=== PATIENT | male | born 1940 | race Caucasian/White ===

== ENCOUNTER 2022-04-13 14:20 | Outpatient (CLI) | payer MEDICARE, SELFPAY ==
--- NOTE | ~2022-04-13 | XR_ITS ---
EXAMINATION: XR chest 2V DATE: 04/13/2022 14:49 INDICATION: Chronic cough. TECHNIQUE: Frontal and lateral views of the chest were obtained. COMPARISON: Chest 2 views 01/01/18 FINDINGS: There is eventration of anterior hemidiaphragm. There is a diffuse interstitial pattern in the lungs with a peripheral predominance, consistent with chronic interstitial lung disease. No pleur al effusion or pneumothorax. The heart size is normal. IMPRESSION: 1. Worsened chronic interstitial lung disease. Reviewed, dictated and finalized at location A.
[2022-04-13 14:36] LABS: Basophils Absolute Auto 0.06 K/mm3 (0.00-0.10); Basophils Percent Auto 0.8 % (0.0-1.0); Eosinophils Absolute Auto 0.28 K/mm3 (0.02-0.50); Eosinophils Percent Auto 3.7 % (1.0-6.0); Hematocrit 37.4 % (37.0-46.0); Hemoglobin 12.4 g/dL (12.4-15.3); Immature Granulocyte Absolute 0.05 K/mm3 (0.00-0.00); Immature Granulocyte Percent A 0.7 % (0.0-0.0); Lymphocytes Absolute Auto 2.22 K/mm3 (1.10-4.50); Lymphocytes Percent Auto 29.4 % (18.0-42.0); Mean Corpuscular HGB Conc 33.2 g/dL (32.0-36.0); Mean Corpuscular Hemoglobin 31.1 pg (27.0-31.0); Mean Corpuscular Volume 93.7 fL (78.0-102.0); Mean Platelet Volume 9.7 fl (8.7-11.0); Monocytes Absolute Auto 0.68 K/mm3 (0.10-0.90); Neutrophils Absolute Auto 4.3 K/mm3 (1.7-7.2); Neutrophils Percent Auto 56.4 % (50.0-70.0); Platelet Count Result 180 K/mm3 (150-420); Red Blood Count 3.99 M/mm3 (4.70-6.10); Red Cell Distribution Width 14.6 % (11.6-14.4); White Blood Count 7.6 K/mm3 (4.8-10.8)
[2022-04-13 14:44] LABS: Appearance Urine Clear (Clear); Bilirubin Urine Negative (Negative); Color Urine Yellow (Yellow); Glucose Urine UA Negative (Negative); Ketones Urine Negative (Negative); Leukocyte Esterase Ur Negative (Negative); Nitrate Urine Negative (Negative); Protein Urine Negative (Negative); Specific Grav Ur 1.025 (1.010-1.020); Urobilinogen Urine 0.2 mg/dL (0.2-1.0)
[2022-04-13 14:45] LABS: Add Urine Microscopic? NO; Blood Urine Negative (Negative)
[2022-04-13 14:50] LABS: Hemoglobin A1C 7.8 % (<5.7)
--- NOTE | 2022-04-13 15:04 | ECG_ITS ---
Measurements Intervals [place] Rate: 73 P: 19 KS: 169 QRS: 50 QRSD: 150 T: 60 QT: 432 QTc: 479 Interpretive Statements SINUS RHYTHM RIGHT BUNDLE BRANCH BLOCK ABNORMAL ECG NO PREVIOUS ECG AVAILABLE FOR COMPARISON Electronically Signed On 04-13-2022 21:34:13 CDT by Oneil Hagen D.O.
[2022-04-13 15:09] LABS: Alanine Aminotransferase 18 U/L (16-63); Albumin Level 3.7 g/dL (3.4-5.0); Alkaline Phosphatase 82 U/L (46-116); Anion Gap 8 mmol/L (8-16); Aspartate Amino Transferase 13 U/L (15-37); Bilirubin,Total 1.1 mg/dL (0.00-1.00); Blood Urea Nitrogen 20 mg/dL (7-18); Calcium 8.9 mg/dL (8.5-10.1); Carbon Dioxide 29 mmol/L (21-32); Chloride 100 mmol/L (98-108); Cholesterol 120 mg/dL (0-200); Estimated Glomerular Filt Rate > 60; Glucose 195 mg/dL (70-99); HDL Direct 41 mg/dL (40-60); LDL Cholesterol Calculated 54 mg/dL (<130); NT Pro B Type Natriuretic Pept 273 pg/mL (0-450); Osmolality Calculated 291 mOsm/kg (285-295); Potassium 4.9 mmol/L (3.5-5.1); Sodium 137 mmol/L (136-145); Thyroid Stimulating Hormone 2.16 uIU/mL (0.36-3.74); Total Protein 7.1 g/dL (6.4-8.2); Triglycerides 124 mg/dL (0-150)
[2022-04-16 09:55] LABS: CRP < 0.2 mg/dL (0.0-0.9)
== END 2022-04-13 14:21 | disposition home or self-care (01) ==
LOC: CHSLAB 14:24
PROVIDERS: PCP Internal Medicine; Visit Provider Internal Medicine
DX: R05.3 Chronic cough (principal); I49.9 Cardiac arrhythmia, unspecified; R06.00 Dyspnea, unspecified; E11.9 Type 2 diabetes mellitus without complications
CPT/HCPCS: 36415; 71046; 80053; 80061; 81003; 83036; 83880; 84443; 85025; 86038; 86140; 93005

== ENCOUNTER 2022-04-24 12:30 | Outpatient (CLI) | payer MEDICARE, SELFPAY ==
--- NOTE | ~2022-04-24 | CT_ITS ---
EXAMINATION:CT diagnostic chest wo con DATE: 04/24/2022 12:51 INDICATION: Interstitial lung disease. Cough. TECHNIQUE: Computed tomography (CT) of the chest was performed without intravenous contrast. Automate d exposure control and iterative reconstruction technique were employed. The dose-length product (DLP ) was 309.38 mGy-cm. COMPARISON: Chest 2 views 04/13/2022 FINDINGS: There is widespread septal thickening in the lungs with a peripheral predominance. There is peripheral honeycombing in all lobes. There is mild bronchiectasis in the inferior lungs. There are nodules in the lungs measuring up to 5 mm in left upper lobe, likely benign. Calcified pulmonary nodu les and calcified hilar lymph nodes are consistent with old granulomatous disease. No pleural effusio n. The heart size is normal. There are coronary artery calcifications. There are calcifications of ao rtic valve. No pericardial effusion. There is mild mediastinal lymphadenopathy, likely reactive. The central pulmonary arteries are enlarged, consistent with pulmonary arterial hypertension. IMPRESSION: 1. Severe chronic interstitial lung disease in a pattern of usual interstitial pneumonia (UIP). 2. Mild mediastinal lymphadenopathy, likely reactive. Reviewed, dictated and finalized at location A.
== END 2022-04-24 12:31 | disposition home or self-care (01) ==
PROVIDERS: PCP Internal Medicine; Visit Provider Internal Medicine
DX: J84.9 Interstitial pulmonary disease, unspecified (principal)
CPT/HCPCS: 71250

== ENCOUNTER 2022-05-11 08:38 | Outpatient (CLI) | payer MEDICARE, SELFPAY | END 2022-05-11 08:39 | disposition home or self-care (01) | LOC: CHSCARD 08:41 | PROVIDERS: PCP Internal Medicine; Visit Provider Internal Medicine | DX: J84.9 Interstitial pulmonary disease, unspecified (principal) | CPT/HCPCS: 94060; 94726; 94729 ==

== ENCOUNTER 2022-06-07 11:10 | Outpatient (CLI) | payer MEDICARE, SELFPAY ==
[2022-06-07 12:10] LABS: CRP < 0.5 mg/dL (<1.0); Creatine Kinase 79 U/L (55-170); Rheumatoid Factor < 8.6 IU/ML (<12)
[2022-06-11 12:34] LABS: Anti Cyclic Citrullinated Pept <16 Units (<20)
== END 2022-06-07 11:11 | disposition home or self-care (01) ==
LOC: ANHLAB 11:11
PROVIDERS: PCP Internal Medicine; Visit Provider Internal Medicine Pulmonary Disease
DX: J84.9 Interstitial pulmonary disease, unspecified (principal)
CPT/HCPCS: 36415; 82550; 86140; 86200; 86430

== ENCOUNTER 2022-06-11 10:50 | Outpatient (CLI) | payer MEDICARE, SELFPAY ==
[2022-06-11 11:00] VITALS: PULSE 67; O2SAT 98
[2022-06-11 11:07] VITALS: PULSE 86; O2SAT 93
--- NOTE | 2022-06-11 11:14 | HOMEO2EVAL ---
[place] was [place] [facility]: Home Oxygen (O2) Evaluation Start: 06/11/22 11:11 Freq: Status: Active Protocol: RPE Activity Type Activity Date Activity User E-sign Co-sign Detail Recorded Client Recorded Date Recorded By Document 06/11/22 11:00 [email or web address] [email or web address] 06/11/22 11:14 SJB Document 06/11/22 11:07 SJB [email or web address] 06/11/22 11:14 SJB 06/11/22 06/11/22 11:00 11:07 Home O2 Evaluation [Oxygen] -Test Phase Resting Exercise -Oxygen Delivery Room Air Room Air [Pulse Oximetry] -Pulse Oximetry (90-100 %) 98 93 [Pulse Rate] -Pulse Rate (60-100 beats/min) 67 86 [Evaluation] -Activity Tolerance Excellent -Rate of Perceived Exertion (PE) 11 Fairly light Query Text:Click the Protocol Button to View the RPE Scale [Exercise] -Ambulation Distance (feet) 1,400 -Ambulation Distance (meters) 426.69 [Comments] -Home Oxygen Evaluation Comments WILL BEGIN WALK PT WALKED ON ROOM AIR. APPROX 1450 FT ON ROOM AIR. SP02 STAYED AT 93% AND ABOVE, WITH HR UP TO 86 BPM. PT EDUCATED ON PLB . TOLERATED VERY WELL. [Charges] -Treatment Charges O2 Evaluation - Outpatient
== END 2022-06-11 10:51 | disposition home or self-care (01) ==
LOC: CHSCARD 10:53
PROVIDERS: PCP Internal Medicine; Visit Provider Internal Medicine Pulmonary Disease
DX: Z87.891 Personal history of nicotine dependence (principal)
CPT/HCPCS: 94618

== ENCOUNTER 2022-12-07 12:32 | Outpatient (CLI) | payer MEDICARE, SELFPAY ==
--- NOTE | ~2022-12-07 | CT_ITS ---
EXAMINATION:CT chest high resolution wo ny DATE: 12/07/2022 13:09 INDICATION: Interstitial pulmonary disease. Cough. TECHNIQUE: Computed tomography (CT) of the chest was performed without intravenous contrast. Automate d exposure control and iterative reconstruction technique were employed. The dose-length product (DLP ) was 315.67 mGy-cm. COMPARISON: Chest CT 04/24/2022 FINDINGS: The lung volumes are small. There is widespread septal thickening in the lungs with a perip heral predominance associated with groundglass opacities. There is peripheral honeycombing in all lob es. There is mild bronchiectasis in the lungs. Calcified pulmonary nodules and calcified right hilar lymph nodes are consistent with old granulomatous disease. No pleural effusion. The heart size is nor mal. There are coronary artery calcifications. No pericardial effusion. There is mild noncalcified me diastinal lymphadenopathy, likely reactive. There are bridging endplate osteophytes at multiple level s in the spine, consistent with diffuse idiopathic skeletal hyperostosis (DISH). IMPRESSION: 1. Stable severe chronic interstitial lung disease in a pattern of usual interstitial pneumonia (UIP) . 2. Stable mild mediastinal lymphadenopathy, likely reactive. Reviewed, dictated and finalized at location E. IMPRESSION: 1. Stable severe chronic interstitial lung disease in a pattern of usual inters titial pneumonia (UIP). 2. Stable mild mediastinal lymphadenopathy, likely reactive.
== END 2022-12-07 12:33 | disposition home or self-care (01) ==
LOC: CHSIMG 12:33
PROVIDERS: PCP Internal Medicine; Visit Provider Internal Medicine Pulmonary Disease
DX: J84.9 Interstitial pulmonary disease, unspecified (principal); Z87.891 Personal history of nicotine dependence; R59.0 Localized enlarged lymph nodes
CPT/HCPCS: 71250

== ENCOUNTER 2022-12-28 13:03 | Outpatient (CLI) | payer MEDICARE, SELFPAY ==
[2022-12-28 13:16] VITALS: PULSE 75; O2SAT 93
[2022-12-28 13:17] VITALS: PULSE 85; O2SAT 93
[2022-12-28 13:20] VITALS: PULSE 84; O2SAT 91
[2022-12-28 13:22] VITALS: PULSE 95; O2SAT 90
[2022-12-28 13:24] VITALS: PULSE 74; O2SAT 93
--- NOTE | 2022-12-28 14:32 | HOMEO2EVAL ---
Evaluation was performed at [facility] Home Oxygen Evaluation RC: Home Oxygen (O2) Evaluation Start: 12/28/22 14:30 Freq: Status: Active Protocol: RPE Activity Type Activity Date Activity User E-sign Co-sign Detail Recorded Client Recorded Date Recorded By Document 12/28/22 13:16 KRM [id number] 12/28/22 14:32 KRM Document 12/28/22 13:17 KRM [id number] 12/28/22 14:32 KRM Document 12/28/22 13:20 KRM [id number] 12/28/22 14:32 KRM Document 12/28/22 13:22 KRM [id number] 12/28/22 14:32 KRM Document 12/28/22 13:24 KRM [id number] 12/28/22 14:32 KRM 12/28/22 12/28/22 12/28/22 13:16 13:17 13:20 Home O2 Evaluation [Oxygen] -Test Phase Resting Exercise Exercise -Oxygen Delivery Room Air Room Air Room Air [Pulse Oximetry] -Pulse Oximetry (90-100 %) 93 93 91 [Pulse Rate] -Pulse Rate (60-100 beats/min) 75 85 84 [Evaluation] -Activity Tolerance Good Good [Exercise] -Ambulation Distance (feet) -Ambulation Distance (meters) [Charges] -Treatment Charges 12/28/22 12/28/22 13:22 13:24 Home O2 Evaluation [Oxygen] -Test Phase Exercise Resting -Oxygen Delivery Room Air Room Air [Pulse Oximetry] -Pulse Oximetry (90-100 %) 90 93 [Pulse Rate] -Pulse Rate (60-100 beats/min) 95 74 [Evaluation] -Activity Tolerance Good Good [Exercise] -Ambulation Distance (feet) 1,020 -Ambulation Distance (meters) 310.88 [Charges] -Treatment Charges O2 Evaluation - Outpatient
--- NOTE | 2023-01-16 11:40 | P.PCNPFT_ITS ---
PFT Procedure Performed PFT Procedure Performed Spirometry with Pre/Post Bronchodilator Plethysmography (Lung Vol) Diffusing Cap (DLCO) Flow Vol Loop PFT Interpretation DOS: 12/28/2022 REQUESTING: Ronny Freeman MD REASON FOR TESTING: interstitial lung disease PULMONARY FUNCTION TESTS Results are reliable and reproducible. Spirometry: Pre-bronchodilator FEV1 is 3.12 L, 100% predicted, normal. Pre- bronchodilator FVC is 3.71 L, 91%, normal. FEV1 /FVC is 84%, normal. After bronchodilator, there is a 1% increase in the FEV1 and a 2% decrease in the FVC. These are not statistically significant. The FEV1/ FVC ratio is the same, 86%. Lung volumes: Total lung capacity 4.90 L, 72%, decreased, consistent with mild restriction. Residual volume 1.19 L, 41% decreased. RV/TLC is 24%, lower than normal. Airway resistance 2.46, 214% Diffusion: DLCO is 15.7, 74% predicted, low end of normal. DLCO/VA is 2.90, 87% predicted, normal. Flow volume loop: The flow volume loop suggests a restrictive impairment. IMPRESSION: This study shows normal spirometry without response to br onchodilator, a mild restrictive pattern and normal diffusion. Compared to a prior study the total lung capacity is smaller showing progression of restriction. There has been an absolute decrease of 720 meals in the total lung capacity. Diffusion has remained stable per absolute values. A prior PFT 05/11/2022 shows FEV1 3.56 L, 113%, normal. Pre bronchodilator FVC is 4.25 L, 104%, normal. The FEV1/FVC ratio is 84%. There was a 4% decrease in both the FEV1 and the FVC after bronchodilator. The total lung capacity was 5.62 L, 82%, low end of normal. Residual volume was 1.37, 48%, decreased, and the RV/TLC was 24%, decreased. Airway resistance was normal. Diffusion showed a DLCO of 14.1, 68% and DLCO/ VA 2.65, 80%. Marian Leiva MD
== END 2022-12-28 13:04 | disposition home or self-care (01) ==
LOC: CHSCARD 13:04
PROVIDERS: PCP Internal Medicine; Visit Provider Internal Medicine Pulmonary Disease
DX: J84.9 Interstitial pulmonary disease, unspecified (principal); Z87.891 Personal history of nicotine dependence
CPT/HCPCS: 94060; 94618; 94726; 94729

== ENCOUNTER 2023-01-30 12:37 | Outpatient (CLI) | payer MEDICARE, SELFPAY ==
[2023-01-30 12:54] LABS: Basophils Absolute Auto 0.04 K/mm3 (0.00-0.10); Basophils Percent Auto 0.5 % (0.0-1.0); Eosinophils Absolute Auto 0.25 K/mm3 (0.02-0.50); Eosinophils Percent Auto 3.4 % (1.0-6.0); Hematocrit 36.6 % (37.0-46.0); Hemoglobin 12.2 g/dL (12.4-15.3); Immature Granulocyte Absolute 0.04 K/mm3 (0.00-0.00); Immature Granulocyte Percent A 0.5 % (0.0-0.0); Lymphocytes Absolute Auto 1.81 K/mm3 (1.10-4.50); Lymphocytes Percent Auto 24.8 % (18.0-42.0); Mean Corpuscular HGB Conc 33.3 g/dL (32.0-36.0); Mean Corpuscular Hemoglobin 31.6 pg (27.0-31.0); Mean Corpuscular Volume 94.8 fL (78.0-102.0); Mean Platelet Volume 9.6 fl (8.7-11.0); Monocytes Absolute Auto 0.64 K/mm3 (0.10-0.90); Monocytes Percent Auto 8.8 % (2.0-11.0); Neutrophils Absolute Auto 4.5 K/mm3 (1.7-7.2); Platelet Count Result 143 K/mm3 (150-420); Red Blood Count 3.86 M/mm3 (4.70-6.10); Red Cell Distribution Width 13.7 % (11.6-14.4); White Blood Count 7.3 K/mm3 (4.8-10.8)
[2023-01-30 12:59] LABS: Appearance Urine Clear (Clear); Bilirubin Urine Negative (Negative); Blood Urine 1+ (Negative); Color Urine Light Yellow (Yellow); Glucose Urine UA Negative (Negative); Ketones Urine Negative (Negative); Leukocyte Esterase Ur Negative (Negative); Nitrate Urine Negative (Negative); Protein Urine Negative (Negative); Specific Grav Ur <= 1.005 (1.010-1.020); Urobilinogen Urine 0.2 mg/dL (0.2-1.0)
[2023-01-30 13:07] LABS: Hemoglobin A1C 7.3 % (<5.7)
[2023-01-30 13:13] LABS: Add Urine Microscopic? YES; Bacteria Urine Rare /hpf; RBC Urine 0-2 /hpf (0-2); WBC Urine None seen /hpf (0-3)
[2023-01-30 13:50] LABS: Alanine Aminotransferase 15 U/L (16-63); Albumin Level 3.5 g/dL (3.4-5.0); Alkaline Phosphatase 58 U/L (46-116); Anion Gap 8 mmol/L (8-16); Aspartate Amino Transferase 11 U/L (15-37); Bilirubin,Total 1.2 mg/dL (0.00-1.00); Blood Urea Nitrogen 13 mg/dL (7-18); Calcium 8.6 mg/dL (8.5-10.1); Carbon Dioxide 29 mmol/L (21-32); Chloride 95 mmol/L (98-108); Cholesterol 123 mg/dL (0-200); Estimated Glomerular Filt Rate > 60; Glucose 153 mg/dL (70-99); HDL Direct 43 mg/dL (40-60); LDL Cholesterol Calculated 67 mg/dL (<130); Osmolality Calculated 277 mOsm/kg (285-295); Potassium 4.7 mmol/L (3.5-5.1); Sodium 132 mmol/L (136-145); Thyroid Stimulating Hormone 2.06 uIU/mL (0.36-3.74); Total Protein 7.1 g/dL (6.4-8.2); Triglycerides 67 mg/dL (0-150); Uric Acid 4.5 mg/dL (3.5-7.2)
== END 2023-01-30 12:38 | disposition home or self-care (01) ==
PROVIDERS: PCP Internal Medicine; Visit Provider Internal Medicine
DX: E11.8 Type 2 diabetes mellitus with unspecified complications (principal); Z12.5 Encounter for screening for malignant neoplasm of prostate
CPT/HCPCS: 36415; 80053; 80061; 81001; 83036; 84443; 84550; 85025

== ENCOUNTER 2023-07-11 09:26 | Outpatient (CLI) | payer MEDICARE, SELFPAY ==
--- NOTE | ~2023-07-11 | CT_ITS ---
EXAMINATION: CT diagnostic chest wo con DATE: 07/11/2023 09:47 INDICATION: Interstitial pulmonary disease TECHNIQUE: Computed tomography (CT) of the chest was performed without intravenous contrast. The dose -length product (DLP) was 12/07/2022 mGy-cm. Automated exposure control and iterative reconstruction t echnique were employed. COMPARISON: 12/07/2022 FINDINGS: There are widespread subpleural reticular and groundglass opacities without significant shiloh nge. There is honeycombing in the lower lung zones. There are a few areas of superimposed groundglass opacities in the medial right upper lobe. Traction bronchiectasis is noted in the lower lobes. No pl eural effusion or pneumothorax. Calcified coronary artery atherosclerosis is noted. The heart size is normal. There is chronic mild mediastinal lymphadenopathy, likely reactive. There are bridging osteo phytes at multiple levels in the spine, consistent with diffuse idiopathic skeletal hyperostosis (DIS H). IMPRESSION: 1. Chronic interstitial lung disease in a pattern of usual interstitial pneumonia (UIP). 2. Superimposed airspace opacities in the medial right upper lobe may be infectious or inflammatory. 3. Chronic mild mediastinal lymphadenopathy, likely reactive. Reviewed, dictated and finalized at location L. R FOAM RUBBER IMPRESSION: 1. Chronic interstitial lung disease in a pattern of usual interstitial pneumon ia (UIP). 2. Superimposed airspace opacities in the medial right upper lobe may be infect ious or inflammatory. 3. Chronic mild mediastinal lymphadenopathy, likely reactive.
--- NOTE | 2023-07-11 17:10 | WPDSIXMINUTE ---
Six Minute Walk Procedure Procedure Performed Pulmonary Stress Test (6 min walk) Six Minute Walk Six Minute Walk: This is a 6 minute walk test. The test was performed and interpreted in accordance with the 2014 ERS/ATS task force guidelines. Findings: The patient's resting room air oxygen saturation measured by pulse oximetry was 94% and heart rate was 64 bpm. Patient ambulated for 335 meters and oxygen saturation remained 90 to 91%. Heart rate at the end of the study was 96 bpm. The patient did not qualify for supplemental oxygen at rest or with ambulation. There are no prior studies for comparison.
--- NOTE | 2023-07-11 17:13 | WPDPFTINT ---
PFT Procedure Performed PFT Procedure Performed Spirometry with Pre/Post Bronchodilator Plethysmography (Lung Vol) Diffusing Cap (DLCO) Flow Vol Loop PFT Interpretation This is a pulmonary function test with pre and post-bronchodilator spirometry, plethysmography and diffusing capacity. The test was performed and results interpreted in accordance with the 2019 and 2005 ATS/ERS Task Force guidelines respectively using the Global Lung Function Initiative-2012 reference equations. Patient demonstrated good effort and cooperation. Reproducibility criteria were met. The quality of the pre bronchodilator spirometry maneuver was Grade A and post bronchodilator spirometry maneuver was Grade A. Findings: Spirometry: The contour the inspiratory and expiratory flow tracing are normal. The pre bronchodilator FVC is 3.58 L, 87% predicted. The pre bronchodilator FEV1 is 2.92 L, 97% predicted. The pre bronchodilator FEV1: FVC ratio was 82%. The post bronchodilator FVC is 3.48 L, representing a 3% decrease. The post bronchodilator FEV1 is 3.01 L, representing a 3% increase. The post bronchodilator FEV1: FVC ratio is 86%. Plethysmography: The total lung capacity is 4.07 L, 54% predicted. The functional residual capacity is 1.78 L, 44% predicted. The residual volume is 0.37 L, 13% predicted. Diffusing capacity: The diffusing capacity unadjusted for hemoglobin and carboxyhemoglobin is 10.7, 44% predicted. The diffusing capacity adjusted for alveolar volume is 2.22, 64% predicted. Impression: There is a mild restrictive ventilatory abnormality with a normal FEV1. The spirometry is normal without evidence of an obstructive abnormality. There is no significant improvement after inhaling a single dose of albuterol. The diffusing capacity unadjusted for hemoglobin and carboxyhemoglobin is moderately decreased and remains mildly decreased when adjusted for alveolar volume. There are no prior studies for comparison
== END 2023-07-11 09:27 | disposition home or self-care (01) ==
PROVIDERS: PCP Internal Medicine; Visit Provider Internal Medicine Pulmonary Disease
DX: J84.9 Interstitial pulmonary disease, unspecified (principal); R91.8 Other nonspecific abnormal finding of lung field; R59.0 Localized enlarged lymph nodes
CPT/HCPCS: 71250; 94060; 94618; 94726; 94729

== ENCOUNTER 2023-12-10 10:12 | Outpatient (NON) | payer MEDICARE, SELFPAY ==
[2023-12-10 10:33] LABS: Hemoglobin A1C 6.7 % (<5.7)
[2023-12-10 10:35] LABS: Alanine Aminotransferase 19 U/L (16-63); Albumin Level 3.7 g/dL (3.4-5.0); Alkaline Phosphatase 74 U/L (46-116); Anion Gap 7 mmol/L (4-12); Aspartate Amino Transferase 16 U/L (15-37); Bilirubin,Total 1.3 mg/dL (0.00-1.00); Blood Urea Nitrogen 16 mg/dL (7-18); Calcium 8.6 mg/dL (8.5-10.1); Carbon Dioxide 32 mmol/L (21-32); Chloride 92 mmol/L (98-108); Estimated Glomerular Filt Rate > 60; Glucose 79 mg/dL (70-99); Osmolality Calculated 272 mOsm/kg (285-295); Potassium 4.4 mmol/L (3.5-5.1); Sodium 131 mmol/L (136-145); Total Protein 7.5 g/dL (6.4-8.2)
[2023-12-12 13:03] LABS: Osmolality, Urine 253 mOsm/kg (50-1200)
== END 2023-12-10 10:13 | disposition home or self-care (01) ==
LOC: CHSLAB 10:16
PROVIDERS: PCP Internal Medicine; Visit Provider Internal Medicine
DX: E87.1 Hypo-osmolality and hyponatremia (principal); E11.9 Type 2 diabetes mellitus without complications
CPT/HCPCS: 80053; 83036; 83935

== ENCOUNTER 2024-01-07 09:50 | Outpatient (CLI) | payer MEDICARE, SELFPAY ==
[2024-01-07 10:00] VITALS: PULSE 69; O2SAT 94
[2024-01-07 10:03] VITALS: PULSE 92; O2SAT 84
[2024-01-07 10:04] VITALS: O2SAT 86
[2024-01-07 10:05] VITALS: PULSE 92; O2SAT 92
[2024-01-07 10:15] VITALS: PULSE 72; O2SAT 94
--- NOTE | 2024-01-07 11:55 | HOMEO2EVAL ---
Evaluation was performed at [facility] Home Oxygen Evaluation RC: Home Oxygen (O2) Evaluation Start: 01/07/24 11:50 Freq: Status: Active Protocol: RPE Activity Type Activity Date Activity User E-sign Co-sign Detail Recorded Client Recorded Date Recorded By Document 01/07/24 10:00 JOEL [email or web address] 01/07/24 11:54 JOEL Document 01/07/24 10:03 JOEL [email or web address] 01/07/24 11:54 JOEL Document 01/07/24 10:04 [email or web address] [email or web address] 01/07/24 11:54 JOEL Document 01/07/24 10:05 [email or web address] [email or web address] 01/07/24 11:54 JOEL Document 01/07/24 10:15 JOEL [email or web address] 01/07/24 11:54 JOEL 01/07/24 01/07/24 01/07/24 10:00 10:03 10:04 Home O2 Evaluation [Oxygen] -Test Phase Resting Exercise Exercise -Oxygen Delivery Room Air Room Air Nasal Cannula -Oxygen Flow Rate (L/min) 1 [Pulse Oximetry] -Pulse Oximetry (90-100 %) 94 84 L 86 L [Pulse Rate] -Pulse Rate (60-100 beats/min) 69 92 [Evaluation] -Activity Tolerance Excellent -Rating of Perceived Dyspnea (PD) +2 Mild, Some Difficulty, Noticeable to the Observer [Exercise] -Ambulation Distance (feet) 900 -Ambulation Distance (meters) 274.30 [Comments] -Home Oxygen Evaluation Comments [Charges] -Evaluation Charges O2 Evaluation by Pulmonary 01/07/24 01/07/24 10:05 10:15 Home O2 Evaluation [Oxygen] -Test Phase Exercise Resting -Oxygen Delivery Nasal Cannula Room Air -Oxygen Flow Rate (L/min) 2 [Pulse Oximetry] -Pulse Oximetry (90-100 %) 92 94 [Pulse Rate] -Pulse Rate (60-100 beats/min) 92 72 [Evaluation] -Activity Tolerance -Rating of Perceived Dyspnea (PD) [Exercise] -Ambulation Distance (feet) -Ambulation Distance (meters) [Comments] -Home Oxygen Evaluation Comments PT REQUIRES 2 L HOME O2 WITH ACTIVITY/ EXERTION [Charges] -Evaluation Charges
--- NOTE | 2024-01-07 11:55 | PCRCNOTE ---
HOME O2 EVAL FAXED TO OFFICE STAFF, NOTE ON FAX THAT THIS WILL BE A NEW HOME O2 SETUP
--- NOTE | 2024-01-07 13:02 | WPDPFTINT ---
PFT Procedure Performed PFT Procedure Performed Spirometry with Pre/Post Bronchodilator Plethysmography (Lung Vol) Diffusing Cap (DLCO) Flow Vol Loop PFT Interpretation This is a pulmonary function test with pre and post-bronchodilator spirometry, plethysmography and diffusing capacity. The test was performed and results interpreted in accordance with the 2019 and 2005 ATS/ERS Task Force guidelines respectively using the Global Lung Function Initiative-2012 reference equations. Patient demonstrated good effort and cooperation. Reproducibility criteria were met. The quality of the pre bronchodilator spirometry maneuver was Grade A and post bronchodilator spirometry maneuver was Grade A. Findings: Spirometry: The contour the inspiratory and expiratory flow tracing are normal. The pre bronchodilator FVC is 3.25 L, 79% predicted. The pre bronchodilator FEV1 is 2.77 L, 92% predicted. The pre bronchodilator FEV1: FVC ratio is 85%. The post bronchodilator FVC is 3.37 L, representing a 3% increase. The post bronchodilator FEV1 is 2.90 L, representing a 5% increase. The post bronchodilator FEV1: FVC ratio is 86%. Plethysmography: The total lung capacity is 4.50 L, 60% predicted. The functional residual capacity is 2.68 L, 66% predicted. The residual volume is 1.20 L, 43% predicted. Diffusing capacity: The diffusing capacity unadjusted for hemoglobin and carboxyhemoglobin is 10.5, 43% predicted. The diffusing capacity adjusted for alveolar volume is 2.64, 76% predicted. In comparison to previous pulmonary function testing on 07/11/2023, the post bronchodilator FVC is unchanged from 3.48 L to 3.37 L. The post bronchodilator FEV1 is unchanged from 3.01 L to 2.90 L. the total lung capacity is unchanged from 4.07 L to 4.50 L. The functional residual capacity is increased from 1.78 L to 2.68 L. The residual volume is increased from 0.37 L to 1.20 L. The diffusing capacity unadjusted for hemoglobin and carboxyhemoglobin is unchanged from 10.7 to 10.5. The diffusing capacity adjusted for alveolar volume is increased from 2.22 to 2.64. Impression: There is a mild restrictive ventilatory abnormality with a normal FEV1. The spirometry is normal without evidence of an obstructive abnormality. There is no significant improvement after inhaling a single dose of albuterol. The diffusing capacity unadjusted for hemoglobin and carboxyhemoglobin is moderately decreased and normalizes when adjusted for alveolar volume. in comparison to previous pulmonary function testing on 07/11/2023 there has been a greater than anticipated time dependent increase in the functional residual capacity, residual volume and diffusing capacity adjusted for alveolar volume with no significant change in the FVC, FEV1, total lung capacity or diffusing capacity unadjusted for hemoglobin and carboxyhemoglobin. Clinical correlation is recommended.
== END 2024-01-07 09:51 | disposition home or self-care (01) ==
PROVIDERS: PCP Internal Medicine; Visit Provider Internal Medicine Pulmonary Disease
DX: J84.9 Interstitial pulmonary disease, unspecified (principal); R94.2 Abnormal results of pulmonary function studies
CPT/HCPCS: 94060; 94618; 94726; 94729

== ENCOUNTER 2024-04-10 13:24 | Outpatient (CLI) | payer MEDICARE, SELFPAY ==
[2024-04-10 13:37] LABS: Appearance Urine Clear (Clear); Bilirubin Urine Negative (Negative); Color Urine Light Yellow (Yellow); Glucose Urine UA Negative (Negative); Ketones Urine Negative (Negative); Leukocyte Esterase Ur Trace (Negative); Nitrate Urine Negative (Negative); Protein Urine Negative (Negative)
[2024-04-10 13:48] LABS: Add Urine Microscopic? YES; Blood Urine 2+ (Negative); Squamous Epithelial Cell Urine Rare /hpf (Few); WBC Urine None seen /hpf (0-3)
[2024-04-10 13:49] LABS: Bacteria Urine Trace /hpf
== END 2024-04-10 13:25 | disposition home or self-care (01) ==
LOC: CHSLAB 13:26
PROVIDERS: PCP Internal Medicine; Visit Provider Internal Medicine
DX: N39.0 Urinary tract infection, site not specified (principal)
CPT/HCPCS: 81001; 87086; 87088

== ENCOUNTER 2024-04-13 12:21 | Outpatient (CLI) | payer MEDICARE, SELFPAY ==
--- NOTE | ~2024-04-13 | CT_ITS ---
CTA brain carotid Ordering provider: Rosa Choi, SNOW RANGER History: . cognitive behavior changes/Dizziness,SOB,COUGH . Comparison: None. Technique: CT angiogram head and neck was performed following timed intravenous injection of contrast . Thin slice axial images and reformatted coronal images were obtained. Three dimensional reformatted images of the brain were also obtained using a [employer] workstation. Radiation reduction technique ut ilized.The dose-length product was 1667.97 mGy-cm. FINDINGS: HEAD: --ANTERIOR AND MIDDLE CEREBRAL ARTERIES AND BRANCHES: Normal caliber and contour. --INTERNAL CAROTID ARTERIES: Mild atheromatous disease but no significant stenosis. No occlusion. --BASILAR ARTERY AND BRANCHES: Normal caliber and contour. No atheromatous disease. --POSTERIOR CEREBRAL ARTERIES: Normal caliber and contour --POSTERIOR COMMUNICATING ARTERIES: The right and left is demonstrated and continues as the posterior cerebral artery. --ANEURYSM: None visualized. --BRAIN: Brain atrophy with deep white matter ischemic changes. --BONES AND SUPERFICIAL SOFT TISSUES: Please refer to report of CT head performed the same day. --PARANASAL SINUSES AND MASTOIDS: polyp in the left Nasal cavity posteriorly. Right sphenoid and left ethmoid sinus disease. The left sigmoid venous sinus and left IJ are not demonstrated. Thrombosis is highly suggestive NECK: --RIGHT CERVICAL CAROTID SYSTEM: Normal caliber and contour. Percent stenosis per NASCET criteria is 0%. No carotid dissection. Otherwise, no significant atheromatous disease or stenosis of the cervical carotid system. --LEFT CERVICAL CAROTID SYSTEM: Normal caliber and contour. Percent stenosis per NASCET criteria is 0%. No carotid dissection. Otherwise, no significant atheromatous disease or stenosis of the cervical carotid system. --VERTEBRAL ARTERIES: Normal caliber and contour. --VISUALIZED AORTIC ARCH AND BRANCHING VESSELS: Mild atheromatous disease but no significant stenosis . --SOFT TISSUES: Fibrotic changes of the lungs with possible pneumonitis. Pulmonary edema also possibl e --CERVICAL SPINE: Age appropriate degenerative changes. IMPRESSION: 1. Normal CTA head and neck. Percent stenosis per NASCET criteria is 0%. 2. No evidence of occlusion or significant stenosis seen in the intracranial vessels. Reviewed, dictated and finalized at location A. IMPRESSION: 1. Normal CTA head and neck. Percent stenosis per NASCET criteria is 0%. 2. No evidence of occlusion or significant stenosis seen in the intracranial v essels.
[2024-04-13 13:12] LABS: Estimated Glomerular Filt Rate > 60
== END 2024-04-13 12:22 | disposition home or self-care (01) ==
LOC: CHSIMG 12:23
PROVIDERS: PCP Internal Medicine; Visit Provider Nurse Practitioner Family
DX: R41.89 Other symptoms and signs involving cognitive functions and awareness (principal); R42 Dizziness and giddiness
CPT/HCPCS: 70496; 70498; Q9967

== ENCOUNTER 2024-04-14 18:11 | Outpatient (CLI) | payer MEDICARE, SELFPAY ==
[2024-04-14 19:28] LABS: Anion Gap 5 mmol/L (4-12); Blood Urea Nitrogen 18 mg/dL (7-18); Calcium 8.9 mg/dL (8.5-10.1); Carbon Dioxide 34 mmol/L (21-32); Chloride 88 mmol/L (98-108); Estimated Glomerular Filt Rate > 60; Glucose 147 mg/dL (70-99); Osmolality Calculated 268 mOsm/kg (285-295); Sodium 127 mmol/L (136-145)
== END 2024-04-14 18:12 | disposition home or self-care (01) ==
LOC: CHSLAB 18:13
PROVIDERS: PCP Internal Medicine; Visit Provider Nurse Practitioner Family
DX: E87.1 Hypo-osmolality and hyponatremia (principal)
CPT/HCPCS: 36415; 80048

== ENCOUNTER 2024-04-22 15:32 | Outpatient (CLI) | payer MEDICARE, SELFPAY ==
[2024-04-22 16:06] LABS: Basophils Absolute Auto 0.03 K/mm3 (0.00-0.10); Basophils Percent Auto 0.5 % (0.0-1.0); Eosinophils Absolute Auto 0.39 K/mm3 (0.02-0.50); Eosinophils Percent Auto 6.2 % (1.0-6.0); Hemoglobin 11.4 g/dL (12.4-15.3); Immature Granulocyte Absolute 0.04 K/mm3 (0.00-0.00); Immature Granulocyte Percent A 0.6 % (0.0-0.0); Lymphocytes Absolute Auto 1.27 K/mm3 (1.10-4.50); Lymphocytes Percent Auto 20.1 % (18.0-42.0); Mean Corpuscular HGB Conc 33.5 g/dL (32-36); Mean Corpuscular Hemoglobin 28.8 pg (27.0-31.0); Mean Corpuscular Volume 85.9 fL (78.0-102.0); Mean Platelet Volume 9.3 fl (8.7-11.0); Monocytes Absolute Auto 0.87 K/mm3 (0.10-0.90); Monocytes Percent Auto 13.7 % (2.0-11.0); Neutrophils Absolute Auto 3.73 K/mm3 (1.70-7.20); Neutrophils Percent Auto 58.9 % (50.0-70.0); Platelet Count Result 225 K/mm3 (150-420); Red Blood Count 3.96 M/mm3 (4.70-6.10); Red Cell Distribution Width 15.3 % (11.6-14.4); White Blood Count 6.3 K/mm3 (4.8-10.8)
[2024-04-22 16:27] LABS: Alanine Aminotransferase 16 U/L (16-63); Albumin Level 3.2 g/dL (3.4-5.0); Alkaline Phosphatase 91 U/L (46-116); Anion Gap 5 mmol/L (4-12); Aspartate Amino Transferase 15 U/L (15-37); Bilirubin,Total 0.9 mg/dL (0.00-1.00); Blood Urea Nitrogen 16 mg/dL (7-18); Calcium 8.4 mg/dL (8.5-10.1); Carbon Dioxide 33 mmol/L (21-32); Chloride 88 mmol/L (98-108); Estimated Glomerular Filt Rate > 60; Ferritin 117 ng/mL (26-388); Glucose 119 mg/dL (70-99); Iron 28 ug/dL (65-175); Osmolality Calculated 264 mOsm/kg (285-295); Percent Iron Saturation 12 % (12-57); Potassium 4.8 mmol/L (3.5-5.1); Sodium 126 mmol/L (136-145); Total Protein 6.8 g/dL (6.4-8.2)
== END 2024-04-22 15:33 | disposition home or self-care (01) ==
LOC: CHSLAB 15:34
PROVIDERS: PCP Nurse Practitioner Family; Visit Provider Nurse Practitioner Family
DX: E87.1 Hypo-osmolality and hyponatremia (principal); D64.9 Anemia, unspecified; R53.1 Weakness
CPT/HCPCS: 36415; 80053; 82728; 83540; 83550; 85025

== ENCOUNTER 2024-04-25 11:03 | Outpatient (CLI) | payer MEDICARE, SELFPAY | END 2024-04-25 11:04 | disposition home or self-care (01) | LOC: CHSIMG 11:05 | PROVIDERS: PCP Nurse Practitioner Family; Visit Provider Nurse Practitioner Family | DX: R41.89 Other symptoms and signs involving cognitive functions and awareness (principal); R42 Dizziness and giddiness; R53.1 Weakness | CPT/HCPCS: 99199 ==

== ENCOUNTER 2024-04-28 09:48 | Outpatient (CLI) | payer MEDICARE, SELFPAY | END 2024-04-28 09:49 | disposition home or self-care (01) | LOC: CHSLAB 09:51 | PROVIDERS: PCP Nurse Practitioner Family; Visit Provider Specialist | DX: C44.229 Squamous cell carcinoma of skin of left ear and external auricular canal (principal) | CPT/HCPCS: 88305 ==

== ENCOUNTER 2024-05-13 16:07 | Outpatient (CLI) | payer MEDICARE, SELFPAY ==
--- NOTE | ~2024-05-13 | CT_ITS ---
EXAMINATION: CT abdomen pelvis wo con DATE: 05/13/2024 16:38 INDICATION: Hematuria. Hydronephrosis. TECHNIQUE: Computed tomography (CT) of the abdomen and pelvis was performed without intravenous contr ast. Automated exposure control and iterative reconstruction technique were employed. The dose-length product was 424.81 mGy-cm. COMPARISON: None. FINDINGS: The visualized portions of lung bases demonstrate widespread peripheral septal thickening a nd bronchiectasis and honeycombing. Calcified pulmonary nodules and calcified hilar lymph nodes are c onsistent with old granulomatous disease. No pleural effusion. The heart size is normal. There are co ronary artery calcifications. No pericardial effusion. The liver, gallbladder, spleen, stomach, adren al glands, and right kidney are normal. There is a 2.4 cm cyst in left kidney. The prostate is mildly enlarged. There are no dilated loops of bowel. The appendix is normal. There are no pathologically e nlarged lymph nodes. There is no free intraperitoneal fluid. There are bridging endplate osteophytes at multiple levels in the spine, consistent with diffuse idiopathic skeletal hyperostosis (DISH). The re is severe lumbar spondylosis. IMPRESSION: 1. No hydronephrosis. 2. Severe chronic interstitial lung disease in a pattern of usual interstitial pneumonia (UIP). Reviewed, dictated and finalized at location A.
[2024-05-13 16:36] LABS: Hematocrit 34.3 % (37.0-46.0); Hemoglobin 11.3 g/dL (12.4-15.3); Mean Corpuscular HGB Conc 32.9 g/dL (32-36); Mean Corpuscular Hemoglobin 28.5 pg (27.0-31.0); Mean Corpuscular Volume 86.6 fL (78.0-102.0); Mean Platelet Volume 8.7 fl (8.7-11.0); Platelet Count Result 248 K/mm3 (150-420); Red Blood Count 3.96 M/mm3 (4.70-6.10); Red Cell Distribution Width 15.3 % (11.6-14.4); White Blood Count 6.5 K/mm3 (4.8-10.8)
[2024-05-13 16:45] LABS: Alanine Aminotransferase 15 U/L (16-63); Alkaline Phosphatase 90 U/L (46-116); Anion Gap 3 mmol/L (4-12); Aspartate Amino Transferase 22 U/L (15-37); Bilirubin,Total 0.6 mg/dL (0.00-1.00); Blood Urea Nitrogen 14 mg/dL (7-18); Calcium 8.6 mg/dL (8.5-10.1); Carbon Dioxide 33 mmol/L (21-32); Chloride 91 mmol/L (98-108); Estimated Glomerular Filt Rate > 60; Glucose 171 mg/dL (70-99); Osmolality Calculated 268 mOsm/kg (285-295); Sodium 127 mmol/L (136-145); Total Protein 7.6 g/dL (6.4-8.2)
== END 2024-05-13 16:08 | disposition home or self-care (01) ==
PROVIDERS: PCP Internal Medicine; Visit Provider Internal Medicine
DX: R31.9 Hematuria, unspecified (principal); N13.30 Unspecified hydronephrosis; J84.9 Interstitial pulmonary disease, unspecified
CPT/HCPCS: 36415; 74176; 80053; 85027

== ENCOUNTER 2024-05-19 22:13 | Inpatient (IN) | payer MEDICARE, SELFPAY ==
[2024-05-19] VITALS (12 sets, daily range): BP systolic 101–116; BP diastolic 59–75; PULSE 69–78; RESP 14–28; TEMP 37.7; O2SAT 87–99
--- NOTE | ~2024-05-19 | XR_ITS ---
EXAMINATION: XR chest 1V portable DATE: 05/19/2024 23:17 INDICATION: Shortness of breath and fever TECHNIQUE: frontal view of the chest was obtained. COMPARISON: Chest CT dated 07/11/2023 FINDINGS: Clinical data position with gas-filled hepatic flexure the colon underlying the chronically elevated right hemidiaphragm. Chronic diffuse coarse reticular opacities and increasing groundglass opacities with peripheral and lower lung predominance which could represent either progression of previously se en usual interstitial pneumonia (UIP) pattern chronic interstitial lung disease or development of sup erimposed pulmonary edema or pneumonia. Unchanged paramediastinal cystic lesion in the right upper kinjal ng which could represent a pneumatocele or large component of honeycombing. No pneumothorax. Normal h eart size. IMPRESSION: 1. Diffuse coarse reticular and increasing groundglass opacities in both lungs with peripheral lower lung predominance. This could represent either progression of chronic UIP pattern of interstitial janna g disease or interval development of superimposed pulmonary edema or pneumonia. Reviewed, dictated and finalized at location A. IMPRESSION: 1. Diffuse coarse reticular and increasing groundglass opacities in both lungs with peripheral lower lung predominance. This could represent either progressio n of chronic UIP pattern of interstitial lung disease or interval development o f superimposed pulmonary edema or pneumonia.
[2024-05-19] MEDS: SODIUM CHLORIDE 0.9% IV 1,000 ML 100 ML IV CONT (23:00)
[2024-05-19 23:17] LABS: Basophils Absolute Auto 0.04 K/mm3 (0.00-0.10); Basophils Percent Auto 0.5 % (0.0-1.0); Eosinophils Absolute Auto 0.13 K/mm3 (0.02-0.50); Eosinophils Percent Auto 1.6 % (1.0-6.0); Hematocrit 32.6 % (37.0-46.0); Hemoglobin 11.1 g/dL (12.4-15.3); Immature Granulocyte Absolute 0.07 K/mm3 (0.00-0.00); Immature Granulocyte Percent A 0.8 % (0.0-0.0); Lymphocytes Absolute Auto 0.94 K/mm3 (1.10-4.50); Lymphocytes Percent Auto 11.3 % (18.0-42.0); Mean Corpuscular Hemoglobin 28.9 pg (27.0-31.0); Mean Corpuscular Volume 84.9 fL (78.0-102.0); Mean Platelet Volume 8.4 fl (8.7-11.0); Monocytes Absolute Auto 0.66 K/mm3 (0.10-0.90); Monocytes Percent Auto 7.9 % (2.0-11.0); Neutrophils Percent Auto 77.9 % (50.0-70.0); Platelet Count Result 245 K/mm3 (150-420); Red Blood Count 3.84 M/mm3 (4.70-6.10); Red Cell Distribution Width 14.7 % (11.6-14.4); White Blood Count 8.3 K/mm3 (4.8-10.8)
[2024-05-19 23:29] LABS: INR 1.1; Partial Thromboplastin Time 31.1 Sec (23.9-30.70); Prothrombin Time 11.6 Seconds (9.50-12.1)
[2024-05-19 23:31] LABS: Alanine Aminotransferase 17 U/L (16-63); Albumin Level 2.8 g/dL (3.4-5.0); Alkaline Phosphatase 73 U/L (46-116); Aspartate Amino Transferase 16 U/L (15-37); Bilirubin,Total 0.8 mg/dL (0.00-1.00); Blood Urea Nitrogen 13 mg/dL (7-18); Calcium 8.4 mg/dL (8.5-10.1); Estimated CRCL calculation 81 ml/min; Estimated Glomerular Filt Rate > 60; Glucose 102 mg/dL (70-99); Magnesium 1.7 mg/dL (1.8-2.4); Osmolality Calculated 240 mOsm/kg (285-295); Total Protein 7.2 g/dL (6.4-8.2)
[2024-05-19 23:36] LABS: Lactic Acid Reflex 0.9 mmol/L (0.4-2.0)
[2024-05-19 23:38] LABS: Carbon Dioxide 33 mmol/L (21-32); Chloride 83 mmol/L (98-108); Potassium 4.6 mmol/L (3.5-5.1)
[2024-05-19 23:39] LABS: Anion Gap 5 mmol/L (4-12); Sodium 121 mmol/L (136-145)
[2024-05-19 23:51] LABS: SARS-CoV-2 RNA PCR Negative (Negative)
[2024-05-19 23:52] LABS: Influenza A QL RT-PCR Negative (Negative); Influenza B QL RT-PCR Negative (Negative)
[2024-05-20] VITALS (25 sets, daily range): BP systolic 102–147; BP diastolic 61–76; PULSE 62–85; RESP 12–28; TEMP 35.8–36.7; O2SAT 91–98; BMI 26.4
--- NOTE | 2024-05-20 00:09 | ED.GENADULT ---
HPI - General Adult General Chief complaint: Fever Stated complaint: Weakness Source: patient, family and EMS Mode of arrival: EMS Limitations: clinical condition History of Present Illness HPI narrative: 83 YEARS OLD WHITE FEMALE WITH HISTORY OF CHRONIC INTERSTITIAL PULMONARY FIBROSIS CAME TO THE ED BY AMBULANCE FROM HALFWAY COMPLAINING FEELING COLD ALL DAY LONG THIS MORNING. PATIENT'S RELATIVE WHO HAVE THE POWER OF PROOF LOAD MECHANIC TELLING ME THAT THE TEMPERATURE IN HIS ROOM IS 80 DEGREE. PATIENT CURRENTLY ON ROCEPHIN IM DAILY FOR URINARY TRACT INFECTION. HISTORY OF HYPONATREMIA WHICH SUPPOSED TO BE GETTING BETTER LATELY. PATIENT DENIES ANY INCREASE OF THE SHORTNESS OF BREATH COMPARED TO THE PAST OR ANY INCREASE IN COUGHING COMPARED TO THE PAST OR CHEST PAIN. JUST FEELING COLD. PATIENT STATUS POST FLU VACCINATION AND COVID VACCINATION 1 WEEK AGO Related Data Home Medications Medication Instructions Recorded Confirmed krill oil 500 mg capsule mg PO 01/08/23 folic acid 1 mg tablet 1 mg PO WEEKLY 07/31/23 metformin 500 mg tablet 500 mg PO BID 07/31/23 Allergies Allergy/AdvReac Type Severity Reaction Status Date / Time No Known Allergies Allergy Verified 01/22/24 09:59 Review of Systems Review of Systems: ROS unobtainable: Yes unobtainable due to medical condition PMFSH Surgical History Surgical History H/O foot surgery Family History Family History Sibling Family history of blood dyscrasia Family history of diabetes mellitus in first degree relative Family history of atrial fibrillation Father Family history of heart disease in male family member before age 55 Grandparent Diabetes mellitus Social History Social History Smoking status: Never smoker Alcohol intake: never Exam Narrative: GENERAL APPEARANCE: WELL-DEVELOPED, WELL-NOURISHED SKIN: NORMAL COLOR HEAD: NORMOCEPHALIC, NONTRAUMATIC EYES: CLEAR CONJUNCTIVA ENT: OROPHARYNX NORMAL, EARS NORMAL, NOSE NORMAL NECK: SUPPLE, NONTENDER CHEST AND RESPIRATORY: DIMINUTION OF AIR ENTRY BILATERALLY, FEW SCATTERED DRY RALES BILATERALLY HEART: REGULAR RATE/RHYTHM ABDOMEN: SOFT, NONTENDER, NO ORGANOMEGALY, QUIET BOWEL SOUNDS VASCULAR: NORMAL PERIPHERAL PULSES, NORMAL CAPILLARY REFILL. MUSCULOSKELETAL: NORMAL RANGE OF MOTION, NONTENDER BACK NEUROLOGIC: ALERT AND ORIENTED ?3, Course Vital Signs Vital signs: Vital Signs Temperature 37.7 C H 05/19/24 22:25 Pulse Rate 76 05/19/24 22:25 Respiratory Rate 20 05/19/24 22:25 Blood Pressure 116/70 05/19/24 22:25 Pulse Oximetry 95 05/19/24 22:25 Oxygen Delivery Nasal Cannula 05/19/24 22:25 Oxygen Flow Rate 2 05/19/24 22:25 Temperature 37.7 C H 05/19/24 22:25 Pulse Rate 76 05/19/24 22:25 Respiratory Rate 20 05/19/24 22:25 Blood Pressure 116/70 05/19/24 22:25 Pulse Oximetry 95 05/19/24 22:25 Oxygen Delivery Nasal Cannula 05/19/24:25 Oxygen Flow Rate 2 05/19/24 22:25 Medical Decision Making MDM Narrative Medical decision making narrative: PATIENT CAME WITH FEELING COLD ALTHOUGH THE TEMPERATURE AT HIS ROOM WAS 80?. HISTORY OF INTERSTITIAL PULMONARY FIBROSIS. PATIENT IS SUPPOSED TO BE HIGH ON OXYGEN 2 LITER/MINUTE WHICH HE DOES NOT USE VITAL SIGNS SHOWED TEMPERATURE 37.7? PHYSICAL EXAMINATION SHOWING DIMINUTION OF AIR ENTRY BILATERALLY, DRY RALES BILATERALLY, INTERMITTENT COUGHING WHICH IS NOT DIFFERENT THAN BEFORE ACCORDING TO THE PATIENT AND HIS SIGNIFICANT OTHER. DIFFERENTIAL DIAGNOSIS INCLUDE PROGRESSION OF RECESSION PULMONARY FIBROSIS, PNEUMONIA, ELECTROLYTE IMBALANCE, UPPER RESPIRATORY VIRAL INFECTION BLOOD WORKUP TODAY SHOWED WBC OF 8.3, SODIUM OF 121, CHLORIDE 83, NORMAL LACTIC ACID, BNP 769 CHEST X-RAY SHOWED INTERSTITIAL PULMONARY FIBROSIS WITH POSSIBLE SUPERIMPOSED PNEUMONIA PATIENT IS DNR ADMIT TO HOSPITALIST Differential Diagnosis Differential Diagnosis: ABOVE Vital Signs Vital Signs: Vital Signs Temperature 37.7 C H 05/19/24:25 Pulse Rate 76 05/19/24 22:25 Respiratory Rate 20 05/19/24 22:25 Blood Pressure 116/70 05/19/24 22:25 Pulse Oximetry 95 05/19/24 22:25 Oxygen Delivery Nasal Cannula 05/19/24 22:25 Oxygen Flow Rate 2 05/19/24:25 Temperature 37.7 C H 05/19/24 22:25 Pulse Rate 76 05/19/24 22:25 Respiratory Rate 20 05/19/24 22:25 Blood Pressure 116/70 05/19/24 22:25 Pulse Oximetry 95 05/19/24 22:25 Oxygen Delivery Nasal Cannula 05/19/24 22:25 Oxygen Flow Rate 2 05/19/24 22:25 Lab Data 05/19/24 23:13 05/19/24 23:13 Labs: Lab Results 05/19/24 05/19/24 Range/Units 23:12 23:13 WBC 8.3 (4.8-10.8) K/mm3 RBC 3.84 L (4.70-6.10) M/mm3 Hgb 11.1 L (12.4-15.3) g/dL Hct 32.6 L (37.0-46.0) % MCV 84.9 (78.0-102.0) fL MCH 28.9 (27.0-31.0) pg MCHC 34.0 (32-36) g/dL RDW 14.7 H (11.6-14.4) % Plt Count 245 (150-420) K/mm3 MPV 8.4 L (8.7-11.0) fl Immature Gran % (Auto) 0.8 H (0.0-0.0) % Neut % (Auto) 77.9 H (50.0-70.0) % Lymph % (Auto) 11.3 L (18.0-42.0) % [place] % (Auto) 7.9 (2.0-11.0) % Eos % (Auto) 1.6 (1.0-6.0) % Baso % (Auto) 0.5 (0.0-1.0) % Lymph # (Auto) 0.94 L (1.10-4.50) K/mm3 [place] # (Auto) 0.66 (0.10-0.90) K/mm3 Eos # (Auto) 0.13 (0.02-0.50) K/mm3 Baso # (Auto) 0.04 (0.00-0.10) K/mm3 Abs Immat Gran (auto) 0.07 H (0.00-0.00) K/mm3 Absolute Neuts (auto) 6.50 (1.70-7.20) K/mm3 Absolute Nucleated RBC 0.00 (0.00-0.00) K/mm3 Nucleated RBC % 0.0 (0-0.0) % PT 11.6 (9.50-12.1) Seconds INR 1.1 APTT 31.1 H (23.9-30.70) Sec Sodium 121 L (136-145) mmol/L Potassium 4.6 (3.5-5.1) mmol/L Chloride 83 L (98-108) mmol/L Carbon Dioxide 33 H (21-32) mmol/L Anion Gap 5 (4-12) mmol/L BUN 13 (7-18) mg/dL Creatinine 0.66 L (0.70-1.30) mg/dL Estim Creat Clear Calc 81 ml/min Estimated GFR > 60 (59 - ) Glucose 102 H (70-99) mg/dL Calculated Osmolality 240 L (285-295) mOsm/kg Lactic Acid 0.9 (0.4-2.0) mmol/L Calcium 8.4 L (8.5-10.1) mg/dL Magnesium 1.7 L (1.8-2.4) mg/dL Total Bilirubin 0.8 (0.00-1.00) mg/dL AST 16 (15-37) U/L ALT 17 (16-63) U/L Alkaline Phosphatase 73 (46-116) U/L Total Protein 7.2 (6.4-8.2) g/dL Albumin 2.8 L (3.4-5.0) g/dL Influenza A (RT-PCR) Negative (Negative) Influenza B (RT-PCR) Negative (Negative) SARS-CoV-2 RNA (RT-PCR) Negative (Negative) Imaging Data Radiologist's impression: Impressions Chest X-Ray 05/19/24 23:44 IMPRESSION: 1. Diffuse coarse reticular and increasing groundglass opacities in both lungs with peripheral lower lung predominance. This could represent either progression of chronic UIP pattern of interstitial lung disease or interval development of superimposed pulmonary edema or pneumonia. Critical Care Time Critical Care Time Critical Care Time: No Discharge Plan Discharge Clinical Impression: Pneumonia, Chronic interstitial lung disease, Hyponatremia, Syndrome of inappropriate ADH (SIADH) secretion Patient Disposition: Still a Patient Condition: Guarded Prognosis Additional Instructions: ADMIT TO HOSPITALIST Prescriptions: No Action metformin 500 mg tablet 500 mg PO BID krill oil 500 mg capsule PO folic acid 1 mg tablet 1 mg PO WEEKLY Follow-up/Referrals: Bhaskar Ross MD [Primary Care Provider] -
[2024-05-20 00:30] LABS: NT Pro B Type Natriuretic Pept 769 pg/mL (0-450)
[2024-05-20 00:48] LABS: Add Urine Microscopic? YES; Appearance Urine Clear (Clear); Bilirubin Urine Negative (Negative); Blood Urine 1+ (Negative); Color Urine Light Yellow (Yellow); Glucose Urine UA Negative (Negative); Ketones Urine Negative (Negative); Leukocyte Esterase Ur Negative LEU/UL (Negative); Nitrate Urine Negative (Negative); Protein Urine Negative (Negative); Specific Grav Ur 1.015 (1.010-1.020)
[2024-05-20 00:54] LABS: Bacteria Urine Trace /hpf; Squamous Epithelial Cell Urine Rare /hpf (Few); WBC Urine None seen /hpf (0-3)
[2024-05-20] MEDS: ACETAMINOPHEN 325 MG TABLET 650 MG PO (01:12)
[2024-05-20] MEDS: levoFLOXacin 750 MG/D5W 150 ML 750 MG/150 ML BAG 100 MG IVPB (01:13)
[2024-05-20] MEDS: SODIUM CHLORIDE 0.9% IV 1,000 ML 60 ML IV CONT (01:13)
[2024-05-20] MEDS: IPRATROPIUM 0.5 MG/ALBUTEROL SULFATE 2.5 MG AMPUL.NEB 3 ML INHALATION ×3 (01:13→18:44)
[2024-05-20] MEDS: MORPHINE SULFATE (*CRX) 2 MG/ML INJ 1 MG IV PUSH ×2 (09:53→21:11)
--- NOTE | 2024-05-20 10:28 | P.HP_ITS ---
H&P: HPI History of Present Illness Date/Time: 05/20/24 10:28 Chief Complaint: Feeling cold Narrative: Patient is a 83-year-old male who presented to the emergency department from a local assisted living facility with complaints of feeling cold all day even though his apartment was set at 80?. Minimal information from patient due to mental status chronic A&O x1 most information was from patient's power of ip technology transactions attorney medical records. Patient has known medical history of autism, chronic interstitial pulmonary fibrosis, and BPH. Per family patient had also just completed a 5 day course of IM Rocephin for urinary tract infection was last seen in the emergency department for hematuria. Upon assessment patient was extremely anxious and continued to state he was in pain in holding his belly. Family also reported new episodes of incontinence and requested bladder scan to be performed postvoid patient was greater than 600 Parra catheter was then placed and patient's agitation improved. Findings in the emergency department showed a chest x-ray with possible superimposed pulmonary edema or pneumonia, with normal WBC negative for COVID, influenza and RSV, and hyponatremia at 121. Patient was admitted to the medical unit for further evaluation and treatment of hyponatremia, urinary retention and possible pneumonia. Review of Systems Review of Systems: ROS unobtainable: Yes unobtainable due to medical condition and unobtainable due to mental status [facility] Surgical History Surgical History H/O foot surgery Family History Family History Sibling Family history of blood dyscrasia Family history of diabetes mellitus in first degree relative Family history of atrial fibrillation Father Family history of heart disease in male family member before age 55 Grandparent Diabetes mellitus Social History Social History Smoking status: Never smoker Alcohol intake: never Substance use: never Substance use type: does not use Do You Feel Safe in your Home?: Yes Lack of Transportation: No Lack of Food: Never True Current Housing: I Have Housing Concerned About Future Housing: No Difficulty Paying Gas/Electric Bills: No Difficulty Paying for Meds: No Currently Unemployed: No Education: High School Diploma/GED Difficulty w/ Childcare or Family Care: No Spiritual care concerns: No Meds Home Medications and Allergies Home Medications Medication Instructions Recorded Confirmed Type krill oil 500 mg capsule 500 mg PO DAILY 01/08/23 05/20/24 History metformin 500 mg tablet 500 mg PO BID 07/31/23 05/20/24 History Allergies Allergy/AdvReac Type Severity Reaction Status Date / Time No Known Allergies Allergy Verified 01/22/24 09:59 Vital Signs Vital Signs - 24 hr 05/19/24 22:25 05/19/24 22:13 05/19/24 22:45 Temperature 100 F H Pulse Rate 76 Respiratory Rate 20 20 Blood Pressure 116/70 Pulse Oximetry 95 95 93 Oxygen Delivery Nasal Cannula Nasal Cannula Nasal Cannula Oxygen Flow Rate 2 2 2 05/20/24 00:28 05/19/24 22:48 05/19/24 23:00 Temperature Pulse Rate 78 75 76 Respiratory Rate 20 23 H 18 Blood Pressure Pulse Oximetry 92 95 94 Oxygen Delivery Nasal Cannula Oxygen Flow Rate 2 05/19/24 23:01 05/19/24 23:15 05/19/24 23:16 Temperature Pulse Rate 75 78 78 Respiratory Rate 24 H 28 H 17 Blood Pressure 110/68 106/59 L Pulse Oximetry 93 93 96 Oxygen Delivery Oxygen Flow Rate 05/19/24 23:30 05/19/24 23:31 05/19/24 23:45 Temperature Pulse Rate 73 69 72 Respiratory Rate 21 H 16 17 Blood Pressure 101/75 Pulse Oximetry 99 99 87 L Oxygen Delivery Oxygen Flow Rate 05/19/24 23:46 05/20/24 00:00 05/20/24 00:14 Temperature Pulse Rate 72 67 69 Respiratory Rate 14 17 24 H Blood Pressure 107/67 105/72 Pulse Oximetry 92 92 94 Oxygen Delivery Oxygen Flow Rate 05/20/24 00:15 05/20/24 00:30 05/20/24 00:31 Temperature Pulse Rate 70 67 76 Respiratory Rate 18 19 20 Blood Pressure 119/75 Pulse Oximetry 94 91 93 Oxygen Delivery Oxygen Flow Rate 05/20/24 00:45 05/20/24 01:00 05/20/24 01:01 Temperature Pulse Rate 85 65 65 Respiratory Rate Blood Pressure 124/67 Pulse Oximetry 92 94 Oxygen Delivery Oxygen Flow Rate 05/20/24 01:15 05/20/24 01:16 05/20/24 01:30 Temperature Pulse Rate 71 72 74 Respiratory Rate 18 15 18 Blood Pressure 123/73 Pulse Oximetry 91 92 Oxygen Delivery Oxygen Flow Rate 05/20/24 01:31 05/20/24 01:45 05/20/24 01:46 Temperature Pulse Rate 69 71 69 Respiratory Rate 12 14 21 H Blood Pressure 112/68 102/76 Pulse Oximetry Oxygen Delivery Oxygen Flow Rate 05/20/24 01:47 05/20/24 01:19 05/20/24 01:30 Temperature 98.1 F Pulse Rate 68 Respiratory Rate 20 Blood Pressure Pulse Oximetry Oxygen Delivery Oxygen Flow Rate 2 2 05/20/24 03:29 05/20/24 04:00 05/20/24 08:00 Temperature 98.1 F 97.8 F 96.8 F L Pulse Rate 73 65 68 Respiratory Rate 24 H 28 H Blood Pressure 103/65 107/61 147/64 H Pulse Oximetry 92 98 98 Oxygen Delivery Nasal Cannula Nasal Cannula Nasal Cannula Oxygen Flow Rate 2 2 2 Exam Narrative: Physical Exam: * GENERAL: Alert and oriented x 1 will respond to name and answer some questions correctly. * EYES: EOMI. No scleral icterus. PERRLA. * HEENT: Moist mucous membranes. * LUNGS: Wheezing throughout auscultation bilaterally. No accessory muscle use. * CARDIOVASCULAR: Regular rate and rhythm. No murmur. No JVD. S1-S2 * ABDOMEN: Soft, non tenderness and non-distended. No palpable masses. * EXTREMITIES: No edema. Non-tender * SKIN: No rashes or lesions. Skin warm, dry. * NEUROLOGIC: No focal neurological deficits. CN II-XII grossly intact * PSYCHIATRIC: Agitated mood and affect. H&P: Results Labs Labs: Short CBC 05/19/24 Range/Units 23:13 WBC 8.3 (4.8-10.8) K/mm3 Hgb 11.1 L (12.4-15.3) g/dL Hct 32.6 L (37.0-46.0) % Plt Count 245 (150-420) K/mm3 [facility] 05/19/24 23:13 Sodium 121 L Potassium 4.6 Chloride 83 L Carbon Dioxide 33 H BUN 13 Creatinine 0.66 L Glucose 102 H Calcium 8.4 L Liver Function 05/19/24 Range/Units 23:13 Total Bilirubin 0.8 (0.00-1.00) mg/dL AST 16 (15-37) U/L ALT 17 (16-63) U/L Alkaline Phosphatase 73 (46-116) U/L Albumin 2.8 L (3.4-5.0) g/dL Urine 05/20/24 Range/Units 00:40 Urine Color Light yellow (Yellow) Urine Appearance Clear (Clear) Urine pH 7.0 (5.0-8.0) Ur Specific [place] 1.015 (1.010-1.020) Urine Protein Negative (Negative) Urine Glucose (UA) Negative (Negative) Imaging Chest x-ray: Radiologist's impression: FINDINGS: Clinical data position with gas-filled hepatic flexure the colon underlying the chronically elevated right hemidiaphragm. Chronic diffuse coarse reticular opacities and increasing groundglass opacities with peripheral and lower lung predominance which could represent either progression of previously seen usual interstitial pneumonia (UIP) pattern chronic interstitial lung disease or development of superimposed pulmonary edema or pneumonia. Unchanged paramediastinal cystic lesion in the right upper lung which could represent a pneumatocele or large component of honeycombing. No pneumothorax. Normal heart size. IMPRESSION: 1. Diffuse coarse reticular and increasing groundglass opacities in both lungs with peripheral lower lung predominance. This could represent either progression of chronic UIP pattern of interstitial lung disease or interval development of superimposed pulmonary edema or pneumonia. Assessment and Plan Assessment and plan (1) Pneumonia: Code(s): J18.9 - Pneumonia, unspecified organism Status: Acute Assessment and Plan: * Bronchodilators. * Chest x-ray ILD with possible superimposed pulmonary edema versus a * incentive spirometry likely unable to perform * Normal WBC * influenza/COVID/RSV negative * Levaquin to cover Pseudomonas just treated with IM Rocephin * Mucolytics * supplemental oxygen therapy to maintain oxygen 92% * monitor for signs of in sepsis (2) Chronic interstitial lung disease: Code(s): J84.9 - Interstitial pulmonary disease, unspecified Status: Acute Assessment and Plan: * Appears to be stable * Patient is to wear 2 L nasal cannula * [facility]s with [facility] (3) Urinary retention: Code(s): R33.9 - Retention of urine, unspecified Status: Acute Assessment and Plan: * Recently treated with Rocephin IM for UTI * Seen 05/13 for hematuria * UA clean * Bladder scan with greater than 600 mL postvoid * Parra catheter placed * Flomax initiated * Previous CT scan shows a large prostate * Can follow-up with Urology outpatient for bladder trials (4) Hyponatremia: Code(s): E87.1 - Hypo-osmolality and hyponatremia Status: Acute Assessment and Plan: * Chronic hyponatremia * NA 121 * Fluid restriction * May need to initiate sodium tablets if no improvement (5) Diabetes: Code(s): E11.9 - Type 2 diabetes mellitus without complications Status: Acute Assessment and Plan: * Accu-Cheks a.c. HS * sliding scale insulin * hold oral diabetic medications * Watch for hypoglycemia/hypoglycemic protocol ordered Plan Code status: DNR DVT prophylaxis: Lovenox Stress ulcer prophylaxis: Protonix 40 daily PT/OT notes: PT/OT pending Disposition: Patient was admitted to the medical unit for further evaluation and treatment of possible pneumonia, urinary retention, and hyponatremia. Patient is from assisted living facility will need to be evaluated prior to returning may need [facility] facility at discharge care coordination assisting. Spoke with patient's POA at this time will continue with current treatment a monitor for improvement. Quality VTE Prophylaxis VTE prophylaxis: pharmacologic ordered -Patient's previous records reviewed on admission -ER notes reviewed in detail on admission -discussed all findings and current treatment plan with patient/Family/POA -Consultations reviewed for recommendations -Patient's disposition for safe discharge discussed with spring encaser Dictation performed by [employer] direct speech recognition software, therefore manager hospice variants and typographical errors may occur. Hospitalist MIPS Advance Care Plan I have confirmed that the patient's Advanced Care Plan is present, code status is documented, or surrogate decision maker is listed in patient medical record.: Yes Medication Reconciliation I have utilized all available resources to obtain, update and review the patients current medications (includes all prescriptions, OTC, herbals, cannabis, and nutritional supplements).: Yes The patient is not eligible for med reconciliation; the patient is in a emergent medical situation where delaying treatment would jeopardize the patients health.: No
[2024-05-20] MEDS: MAGNESIUM SULF 2 GM/WATER 50ML 2 GM/50 ML BAG IVPB (10:30)
[2024-05-20] MEDS: LORazepam INJ (*CRX) 2 MG/ML VIAL 1 MG IV PUSH (11:13)
--- NOTE | 2024-05-20 15:46 | PCOTNOTE ---
OT attempted to see patient 05/20/2024. Per nursing, patient recently received ativan from nursing staff and was not responding at this time. Therapist to attempt another evaluation 05/22/2024 if patient is still in hospital at that date.
--- NOTE | 2024-05-20 17:30 | PC.NURSE ---
Blood glucose reading coming up >20 on meter. Lab called, is unable to come to floor at this time due to need in the ED. Rechecked with 2nd glucometer, also reading >20. D50 administered per protocol
[2024-05-20 17:36] LABS: Glucose Point of Care < 33 mg/dl (65-105)
[2024-05-20] MEDS: DEXTROSE 50% 25 GM/50 ML SYRINGE IV PUSH ×2 (17:37→17:38)
[2024-05-20 17:40] LABS: Glucose Point of Care < 33 mg/dl (65-105)
[2024-05-20 17:50] LABS: Glucose Point of Care 93 mg/dl (65-105)
[2024-05-20] MEDS: TAMSULOSIN HCL 0.4 MG CAPSULE PO (18:00)
--- NOTE | 2024-05-20 18:14 | PC.NURSE ---
Spoke with Lita Clark, REAL ESTATE SPECIALIST/Hospitalist, and updated her on patient's glucose level and D50 was given per protocol. New orders received.
[2024-05-20 18:19] LABS: Glucose 114 mg/dL (70-99)
[2024-05-20] MEDS: DEXTROSE 5% 1,000 ML 1,000 ML 75 ML IV CONT (18:37)
[2024-05-20 21:18] LABS: Glucose Point of Care 131 mg/dl (65-105)
[2024-05-21] VITALS (16 sets, daily range): BP systolic 103–130; BP diastolic 61–75; PULSE 65–94; RESP 17–20; TEMP 36.1–37.3; O2SAT 89–98
[2024-05-21] MEDS: levoFLOXacin 750 MG/D5W 150 ML 750 MG/150 ML BAG 100 MG IVPB ×2 (00:37→23:52)
[2024-05-21] MEDS: IPRATROPIUM 0.5 MG/ALBUTEROL SULFATE 2.5 MG AMPUL.NEB 3 ML INHALATION ×5 (00:38→23:50)
[2024-05-21 05:21] LABS: Hematocrit 33.6 % (37.0-46.0); Hemoglobin 10.9 g/dL (12.4-15.3); Mean Corpuscular HGB Conc 32.4 g/dL (32-36); Mean Corpuscular Volume 86.4 fL (78.0-102.0); Mean Platelet Volume 8.6 fl (8.7-11.0); Platelet Count Result 223 K/mm3 (150-420); Red Blood Count 3.89 M/mm3 (4.70-6.10); Red Cell Distribution Width 14.9 % (11.6-14.4); White Blood Count 7.3 K/mm3 (4.8-10.8)
[2024-05-21 05:38] LABS: Alanine Aminotransferase 14 U/L (16-63); Albumin Level 2.5 g/dL (3.4-5.0); Alkaline Phosphatase 68 U/L (46-116); Anion Gap 0 mmol/L (4-12); Aspartate Amino Transferase 13 U/L (15-37); Bilirubin,Total 0.7 mg/dL (0.00-1.00); Blood Urea Nitrogen 12 mg/dL (7-18); Calcium 8.1 mg/dL (8.5-10.1); Carbon Dioxide 35 mmol/L (21-32); Chloride 88 mmol/L (98-108); Estimated CRCL calculation 66 ml/min; Estimated Glomerular Filt Rate > 60; Glucose 241 mg/dL (70-99); Osmolality Calculated 263 mOsm/kg (285-295); Potassium 5.5 mmol/L (3.5-5.1); Sodium 123 mmol/L (136-145); Total Protein 6.9 g/dL (6.4-8.2)
--- NOTE | 2024-05-21 09:13 | P.PNIM_ITS ---
Progress Note: A&P Assessment and Plan (1) Pneumonia: Code(s): J18.9 - Pneumonia, unspecified organism Status: Acute Assessment and Plan: * Bronchodilators. * Chest x-ray ILD with possible superimposed pulmonary edema versus Pneumonia * incentive spirometry likely unable to perform * Normal WBC * influenza/COVID/RSV negative * Levaquin to cover Pseudomonas just treated with IM Rocephin * Mucolytics * supplemental oxygen therapy to maintain oxygen 92% * monitor for signs of in sepsis (2) Chronic interstitial lung disease: Code(s): J84.9 - Interstitial pulmonary disease, unspecified Status: Acute Assessment and Plan: * Appears to be stable * Patient is to wear 2 L nasal cannula * Follows with ranch supervisor outpatient (3) Urinary retention: Code(s): R33.9 - Retention of urine, unspecified Status: Acute Assessment and Plan: * Recently treated with Rocephin IM for UTI * Seen 05/13 for hematuria * UA clean * Bladder scan with greater than 600 mL postvoid * Parra catheter placed * Flomax initiated * Previous CT scan shows a large prostate * Can follow-up with Urology outpatient for bladder trials 05/21/24: * likely attempt bladder trial tomorrow * will still need referral to urology (4) Hyponatremia: Code(s): E87.1 - Hypo-osmolality and hyponatremia Status: Acute Assessment and Plan: * Chronic hyponatremia * NA 121 * Fluid restriction * May need to initiate sodium tablets if no improvement 05/21/24: * slowly improving (5) Diabetes: Code(s): E11.9 - Type 2 diabetes mellitus without complications Status: Acute Assessment and Plan: * Accu-Cheks a.c. HS * sliding scale insulin * hold oral diabetic medications * Watch for hypoglycemia/hypoglycemic protocol ordered (6) Hypoglycemia: Code(s): E16.2 - Hypoglycemia, unspecified Status: Acute Assessment and Plan: * Episode of hypoglycemia 20's * likely secondary to poor oral intake * D50 administered and started on dextrose 5%/water * overall improved * d/c dextrose once good oral intake returns Plan Code status: DNR DVT prophylaxis: Lovenox Stress ulcer prophylaxis: Protonix 40 daily PT/OT notes: PT/OT pending Disposition: Patient was admitted to the medical unit for further evaluation and treatment of possible pneumonia, urinary retention, and hyponatremia. Patient is from assisted living facility will need to be evaluated prior to returning may need prison facility at discharge care coordination assisting. plan to complete a bladder trial unsure if assisted living will take patient back with urinary Parra catheter if needed patient will need a referral and follow up with Urology. Spoke with patient's POA at this time will continue with current treatment a monitor for improvement. Time Spent With Patient Time with patient: 15 - 25 minutes Subjective Date/time seen: 05/21/24 09:13 Interval history: Patient is 83-year-old male who was admitted to the medical unit for pneumonia and urinary retention 05/21/2024: Patient alert and answering questions, less confused and agitated. Urinary catheter with good output and no hematuria. Patient denied any CP or SOB. Review of Systems Review of Systems: ROS unobtainable: Yes unobtainable due to medical condition and unobtainable due to mental status Exam Narrative: Physical Exam: * GENERAL: Alert and oriented x 1 will respond to name and answer some questions correctly. * EYES: EOMI. No scleral icterus. PERRLA. * HEENT: Moist mucous membranes. * LUNGS: Wheezing throughout auscultation bilaterally. No accessory muscle use. * CARDIOVASCULAR: Regular rate and rhythm. No murmur. No JVD. S1-S2 * ABDOMEN: Soft, non tenderness and non-distended. No palpable masses. * EXTREMITIES: No edema. Non-tender * SKIN: No rashes or lesions. Skin warm, dry. * NEUROLOGIC: No focal neurological deficits. CN II-XII grossly intact * PSYCHIATRIC: Good mood and affect. Objective Data Vital Signs Vital Signs: Vital Signs - 24 hr 05/20/24 11:45 05/20/24 11:52 05/20/24 12:00 Temperature 96.5 F L Pulse Rate 62 65 70 Respiratory Rate 16 16 16 Blood Pressure 133/70 Pulse Oximetry 98 98 98 Oxygen Delivery Nasal Cannula Oxygen Flow Rate 2 2 05/20/24 16:00 05/20/24 20:00 05/21/24 00:37 Temperature 96.8 F L Pulse Rate 76 Respiratory Rate 20 20 Blood Pressure 119/69 Pulse Oximetry 98 94 Oxygen Delivery Room Air Oxygen Flow Rate 2 05/21/24 00:00 05/21/24 00:50 05/21/24 03:35 Temperature 99 F Pulse Rate 94 Respiratory Rate 20 17 Blood Pressure 105/66 Pulse Oximetry 92 93 Oxygen Delivery Nasal Cannula Oxygen Flow Rate 2 2 05/21/24 05:35 05/21/24 05:44 Temperature Pulse Rate 67 68 Respiratory Rate 20 20 Blood Pressure Pulse Oximetry 92 95 Oxygen Delivery Oxygen Flow Rate 2 2 Intake/Output Intake/Output: Intake & Output 05/18/24 05/19/24 05/20/24 05/21/24 23:59 23:59 23:59 23:59 Intake Total 1580.0 620 Output Total 3500 575 Balance -1920.0 45 Meds/Results Medications: Active Medications Generic Name Dose Route Start Last Admin Trade Name Freq PRN Reason Stop Dose Admin Acetaminophen 650 mg 05/20/24 00:26 Acetaminophen 325 Mg Tablet PO Q4H PRN Mild Pain (1-3) or Fever Albuterol/Ipratropium 3 ml 05/20/24 12:30 05/21/24 05:34 Ipratropium 0.5 Mg/Albuterol Sulfate 2.5 Mg Ampul.Neb 3 Ml INHALATION 3 ml Q6HRT DOM Administration Dextrose 12.5 gm 05/20/24 08:24 05/20/24 17:38 Dextrose 50% 25 Gm/50 Ml Syringe IV PUSH 12.5 gm PRN PRN Administration Hypoglycemia Protocol Enoxaparin Sodium 40 mg 05/21/24 09:00 Enoxaparin 40 Mg/0.4 Ml Syringe SUB-Q DAILY DOM Glucagon 1 mg 05/20/24 08:24 Glucagon For Inj 1 Mg Vial IM PRN PRN Hypoglycemia Protocol Glucose 15 gm 05/20/24 08:24 Glucose Oral Gel 15 Gm Of Glucse In 37.5 Gm Tube PO PRN PRN Hypoglycemia Protocol Guaifenesin 1,200 mg 05/20/24 09:00 05/20/24 21:10 Guaifenesin 12 Hr 600 Mg Tabcr PO Not Given Q12HR [facility] Levofloxacin/Dextrose 750 mg in 150 mls @ 100 mls/hr 05/20/24 00:20 05/21/24 02:13 Levaquin 750 Mg/D5w 150 Ml IVPB Infused Q24H [facility] Infusion Dextrose 1,000 mls @ 100 mls/hr 05/20/24 08:24 Dextrose 5% 1,000 Ml IVPB PRN PRN Hypoglycemia Protocol Insulin Human Lispro 2 - 5 units 05/20/24 12:00 05/21/24 08:50 Insulin Human Lispro (*Bkc) 1,000 Units/10 Ml Vial SUB-Q Not Given TIDWM [facility] Protocol Morphine Sulfate 1 mg 05/20/24 08:25 05/20/24 21:11 Morphine Sulfate (*Crx) 2 Mg/Ml Inj IV PUSH 1 mg Q4H PRN Administration Pain Rated 7-10 Ondansetron HCl 4 mg 05/20/24 08:21 Ondansetron Inj 4 Mg/2 Ml Vial IV PUSH Q6H PRN Nausea And Vomiting Tamsulosin HCl 0.4 mg 05/21/24 09:00 Tamsulosin Hcl 0.4 Mg Capsule PO [facility] Radiology Results: ITS Impressions Chest X-Ray 05/19/24 23:44 IMPRESSION: 1. Diffuse coarse reticular and increasing groundglass opacities in both lungs with peripheral lower lung predominance. This could represent either progression of chronic UIP pattern of interstitial lung disease or interval development of superimposed pulmonary edema or pneumonia. Labs Labs: Laboratory Results - last 24 hr 05/20/24 05/20/24 05/20/24 17:31 17:34 17:44 WBC RBC Hgb Hct MCV MCH MCHC RDW Plt Count MPV Sodium Potassium Chloride Carbon Dioxide Anion Gap BUN Creatinine Estim Creat Clear Calc Estimated GFR Glucose POC Capillary Glucose < 33 L* < 33 L* 93 Calculated Osmolality Calcium Magnesium Total Bilirubin AST ALT Alkaline Phosphatase Total Protein Albumin 05/20/24 05/20/24 05/21/24 18:05 21:17 05:00 WBC 7.3 RBC 3.89 L Hgb 10.9 L Hct 33.6 L MCV 86.4 MCH 28.0 MCHC 32.4 RDW 14.9 H Plt Count 223 MPV 8.6 L Sodium 123 L Potassium 5.5 H Chloride 88 L Carbon Dioxide 35 H Anion Gap 0 L BUN 12 Creatinine 0.82 Estim Creat Clear Calc 66 Estimated GFR > 60 Glucose 114 H 241 H POC Capillary Glucose 131 H Calculated Osmolality 263 L Calcium 8.1 L Magnesium 2.0 Total Bilirubin 0.7 AST 13 L ALT 14 L Alkaline Phosphatase 68 Total Protein 6.9 Albumin 2.5 L Quality VTE Prophylaxis VTE prophylaxis: pharmacologic ordered -Patient's previous records reviewed on admission -ER notes reviewed in detail on admission -discussed all findings and current treatment plan with patient/Family/POA -Consultations reviewed for recommendations -Patient's disposition for safe discharge discussed with dependency case manager Dictation performed by [employer] direct speech recognition software, therefore molder feeder variants and typographical errors may occur. Hospitalist MIPS Advance Care Plan I have confirmed that the patient's Advanced Care Plan is present, code status is documented, or surrogate decision maker is listed in patient medical record.: Yes Medication Reconciliation I have utilized all available resources to obtain, update and review the patients current medications (includes all prescriptions, OTC, herbals, cannabis, and nutritional supplements).: Yes The patient is not eligible for med reconciliation; the patient is in a emergent medical situation where delaying treatment would jeopardize the patients health.: No
[2024-05-21] MEDS: SODIUM ZIRCONIUM CYCLOSILICATE 5 GM POWD.PACK PO (09:28)
[2024-05-21] MEDS: guaiFENesin 12 HR 600 MG TABCR 1200 MG PO ×2 (09:29→21:46)
[2024-05-21] MEDS: TAMSULOSIN HCL 0.4 MG CAPSULE PO (09:29)
[2024-05-21] MEDS: ENOXAPARIN 40 MG/0.4 ML SYRINGE SUB-Q (09:29)
[2024-05-21 12:01] LABS: Glucose Point of Care 167 mg/dl (65-105)
[2024-05-21 17:06] LABS: Glucose Point of Care 267 mg/dl (65-105)
[2024-05-21] MEDS: INSULIN HUMAN LISPRO (*BKC) 1,000 UNITS/10 ML VIAL SUB-Q (17:11)
[2024-05-21] MEDS: ALPRAZolam (*CRX) 0.5 MG TABLET PO (21:46)
[2024-05-21] MEDS: MORPHINE SULFATE (*CRX) 2 MG/ML INJ 1 MG IV PUSH (21:47)
[2024-05-21 22:07] LABS: Glucose Point of Care 301 mg/dl (65-105)
[2024-05-22] VITALS (16 sets, daily range): BP systolic 93–110; BP diastolic 50–78; PULSE 72–99; RESP 16–22; TEMP 36.1–37.3; O2SAT 89–98
[2024-05-22] MEDS: IPRATROPIUM 0.5 MG/ALBUTEROL SULFATE 2.5 MG AMPUL.NEB 3 ML INHALATION ×4 (05:34→23:36)
[2024-05-22 05:40] LABS: Hemoglobin 10.6 g/dL (12.4-15.3); Mean Corpuscular HGB Conc 33.1 g/dL (32-36); Mean Corpuscular Hemoglobin 28.3 pg (27.0-31.0); Mean Corpuscular Volume 85.6 fL (78.0-102.0); Mean Platelet Volume 8.4 fl (8.7-11.0); Platelet Count Result 217 K/mm3 (150-420); Red Blood Count 3.74 M/mm3 (4.70-6.10); Red Cell Distribution Width 14.7 % (11.6-14.4); White Blood Count 5.6 K/mm3 (4.8-10.8)
[2024-05-22 05:59] LABS: Alanine Aminotransferase 10 U/L (16-63); Albumin Level 2.4 g/dL (3.4-5.0); Alkaline Phosphatase 70 U/L (46-116); Anion Gap 0 mmol/L (4-12); Aspartate Amino Transferase 13 U/L (15-37); Bilirubin,Total 1.1 mg/dL (0.00-1.00); Blood Urea Nitrogen 13 mg/dL (7-18); Calcium 8.3 mg/dL (8.5-10.1); Carbon Dioxide 35 mmol/L (21-32); Chloride 90 mmol/L (98-108); Estimated CRCL calculation 75 ml/min; Estimated Glomerular Filt Rate > 60; Glucose 200 mg/dL (70-99); Osmolality Calculated 266 mOsm/kg (285-295); Potassium 5.4 mmol/L (3.5-5.1); Sodium 125 mmol/L (136-145); Total Protein 6.7 g/dL (6.4-8.2)
[2024-05-22] MEDS: TAMSULOSIN HCL 0.4 MG CAPSULE PO (08:57)
[2024-05-22] MEDS: FUROSEMIDE INJ 20 MG/2 ML VIAL IV PUSH (08:57)
[2024-05-22] MEDS: guaiFENesin 12 HR 600 MG TABCR 1200 MG PO ×2 (08:57→20:30)
[2024-05-22] MEDS: SODIUM ZIRCONIUM CYCLOSILICATE 5 GM POWD.PACK PO (08:58)
[2024-05-22] MEDS: ENOXAPARIN 40 MG/0.4 ML SYRINGE SUB-Q (08:58)
--- NOTE | 2024-05-22 09:06 | P.PNIM_ITS ---
Progress Note: A&P Assessment and Plan (1) Pneumonia: Code(s): J18.9 - Pneumonia, unspecified organism Status: Acute Assessment and Plan: * Bronchodilators. * Chest x-ray ILD with possible superimposed pulmonary edema versus Pneumonia * incentive spirometry likely unable to perform * Normal WBC * influenza/COVID/RSV negative * Levaquin to cover Pseudomonas just treated with IM Rocephin * Mucolytics * supplemental oxygen therapy to maintain oxygen 92% (2) Chronic interstitial lung disease: Code(s): J84.9 - Interstitial pulmonary disease, unspecified Status: Acute Assessment and Plan: * Appears to be stable * Patient is to wear 2 L nasal cannula * Follows with rn case manager hospice outpatient (3) Urinary retention: Code(s): R33.9 - Retention of urine, unspecified Status: Acute Assessment and Plan: * Recently treated with Rocephin IM for UTI * Seen 05/13 for hematuria * UA clean * Bladder scan with greater than 600 mL postvoid * Parra catheter placed * Flomax initiated * Previous CT scan shows a large prostate * Can follow-up with Urology outpatient for bladder trials 05/21/24: * likely attempt bladder trial tomorrow * will still need referral to urology (4) Hyponatremia: Code(s): E87.1 - Hypo-osmolality and hyponatremia Status: Acute Assessment and Plan: * Chronic hyponatremia * NA 121 * Fluid restriction * May need to initiate sodium tablets if no improvement 05/21/24: * slowly improving 05/22/24: * Lasix x 1 * NA 125 improving (5) Diabetes: Code(s): E11.9 - Type 2 diabetes mellitus without complications Status: Acute Assessment and Plan: * Accu-Cheks a.c. HS * sliding scale insulin * hold oral diabetic medications * Watch for hypoglycemia/hypoglycemic protocol ordered (6) Hypoglycemia: Code(s): E16.2 - Hypoglycemia, unspecified Status: Acute Assessment and Plan: * Episode of hypoglycemia 20's * likely secondary to poor oral intake * D50 administered and started on dextrose 5%/water * overall improved * d/c dextrose once good oral intake returns (7) Hyperkalemia: Code(s): E87.5 - Hyperkalemia Status: Acute Assessment and Plan: * K 5.4 * Lokelma x 2 * Lasix 20mg x 1 * repeat BMP Plan Code status: DNR DVT prophylaxis: Lovenox Stress ulcer prophylaxis: Protonix 40 daily PT/OT notes: PT/OT pending Disposition: Patient was admitted to the medical unit for further evaluation and treatment of possible pneumonia, urinary retention, and hyponatremia. Patient is from assisted living facility will need to be evaluated prior to returning may need senior living facility at discharge care coordination assisting. plan to complete a bladder trial unsure if assisted living will take patient back with urinary Parra catheter if needed patient will need a referral and follow up with Urology. Spoke with patient's POA at this time will continue with current treatment a monitor for improvement. Time Spent With Patient Time with patient: 15 - 25 minutes Subjective Date/time seen: 05/22/24 09:06 Interval history: Patient is 83-year-old male who was admitted to the medical unit for pneumonia and urinary retention 05/22/2024: Patient alert and answering questions, less confused and agitated sitting on the side of the bed eating breakfast. Urinary catheter with good output and no hematuria. Patient denied any CP or SOB. Patient requesting fluids educated him on his fluid restriction. Review of Systems Review of Systems: All systems reviewed & are unremarkable except as noted in HPI and below Exam Narrative: * GENERAL: Alert and oriented x 1 will respond to name and answer some questions correctly. * EYES: PERRLA. * HEENT: Moist mucous membranes. * LUNGS: Wheezing throughout and bilateral LL crackles auscultation bilaterally. No accessory muscle use. On 2L NC * CARDIOVASCULAR: Regular rate and rhythm. No murmur. No JVD. S1-S2 * ABDOMEN: Soft, non tenderness and non-distended. No palpable masses. * : Parra urinary catheter in place, clear yellow urine * EXTREMITIES: No edema. Non-tender * SKIN: No rashes or lesions. Skin warm, dry. * NEUROLOGIC: No focal neurological deficits. CN II-XII grossly intact * PSYCHIATRIC: Good mood and affect. Objective Data Vital Signs Vital Signs: Vital Signs - 24 hr 05/21/24 12:35 05/21/24 12:42 05/21/24 12:00 Temperature Pulse Rate 72 68 65 Respiratory Rate 20 20 17 Blood Pressure 128/67 Pulse Oximetry 95 98 93 Oxygen Delivery Room Air Oxygen Flow Rate 2 05/21/24 16:45 05/21/24 16:00 05/21/24 16:53 Temperature 99.1 F Pulse Rate 73 84 70 Respiratory Rate 20 17 20 Blood Pressure 103/61 Pulse Oximetry 95 91 98 Oxygen Delivery Room Air Oxygen Flow Rate 05/21/24 20:00 05/22/24 00:00 05/21/24 23:48 Temperature 97.8 F Pulse Rate 99 Respiratory Rate 18 19 Blood Pressure 99/62 L Pulse Oximetry 90 89 L Oxygen Delivery Nasal Cannula Oxygen Flow Rate 1 05/22/24 01:05 05/22/24 03:19 05/22/24 05:34 Temperature Pulse Rate 93 Respiratory Rate 19 20 Blood Pressure Pulse Oximetry 95 89 L Oxygen Delivery Oxygen Flow Rate 2 05/22/24 05:49 Temperature Pulse Rate 89 Respiratory Rate 18 Blood Pressure Pulse Oximetry 92 Oxygen Delivery Oxygen Flow Rate 2 Intake/Output Intake/Output: Intake & Output 05/19/24 05/20/24 05/21/24 05/22/24 23:59 23:59 23:59 23:59 Intake Total 1580.0 2166.2 290 Output Total 3500 575 1150 Balance -1920.0 1591.2 -860 Meds/Results Medications: Active Medications Generic Name Dose Route Start Last Admin Trade Name Freq PRN Reason Stop Dose Admin Acetaminophen 650 mg 05/20/24 00:26 Acetaminophen 325 Mg Tablet PO Q4H PRN Mild Pain (1-3) or Fever Albuterol/Ipratropium 3 ml 05/20/24 12:30 05/22/24 05:34 Ipratropium 0.5 Mg/Albuterol Sulfate 2.5 Mg Ampul.Neb 3 Ml INHALATION 3 ml Q6HRT DOM Administration Alprazolam 0.5 mg 05/21/24 11:03 05/21/24 21:46 Alprazolam (*Crx) 0.5 Mg Tablet PO 0.5 mg BID PRN Administration Anxiety Dextrose 12.5 gm 05/20/24 08:24 05/20/24 17:38 Dextrose 50% 25 Gm/50 Ml Syringe IV PUSH 12.5 gm PRN PRN Administration Hypoglycemia Protocol Enoxaparin Sodium 40 mg 05/21/24 09:00 05/22/24 08:58 Enoxaparin 40 Mg/0.4 Ml Syringe SUB-Q 40 mg DAILY DOM Administration Glucagon 1 mg 05/20/24 08:24 Glucagon For Inj 1 Mg Vial IM PRN PRN Hypoglycemia Protocol Glucose 15 gm 05/20/24 08:24 Glucose Oral Gel 15 Gm Of Glucse In 37.5 Gm Tube PO PRN PRN Hypoglycemia Protocol Guaifenesin 1,200 mg 05/20/24 09:00 05/22/24 08:57 Guaifenesin 12 Hr 600 Mg Tabcr PO 1,200 mg Q12HR DOM Administration Levofloxacin/Dextrose 750 mg in 150 mls @ 100 mls/hr 05/20/24 00:20 05/22/24 01:26 Levaquin 750 Mg/D5w 150 Ml IVPB Infused Q24H [facility] Infusion Dextrose 1,000 mls @ 100 mls/hr 05/20/24 08:24 Dextrose 5% 1,000 Ml IVPB PRN PRN Hypoglycemia Protocol Insulin Human Lispro 2 - 5 units 05/20/24 12:00 05/22/24 08:53 Insulin Human Lispro (*Bkc) 1,000 Units/10 Ml Vial SUB-Q Not Given TIDWM [facility] Protocol Morphine Sulfate 1 mg 05/20/24 08:25 05/21/24 21:47 Morphine Sulfate (*Crx) 2 Mg/Ml Inj IV PUSH 1 mg Q4H PRN Administration Pain Rated 7-10 Ondansetron HCl 4 mg 05/20/24 08:21 Ondansetron Inj 4 Mg/2 Ml Vial IV PUSH Q6H PRN Nausea And Vomiting Tamsulosin HCl 0.4 mg 05/21/24 09:00 05/22/24 08:57 Tamsulosin Hcl 0.4 Mg Capsule PO 0.4 mg QAM DOM Administration Radiology Results: ITS Impressions Chest X-Ray 05/19/24 23:44 IMPRESSION: 1. Diffuse coarse reticular and increasing groundglass opacities in both lungs with peripheral lower lung predominance. This could represent either progression of chronic UIP pattern of interstitial lung disease or interval development of superimposed pulmonary edema or pneumonia. Labs Labs: Laboratory Results - last 24 hr 05/21/24 05/21/24 05/21/24 11:55 17:01 21:52 WBC RBC Hgb Hct MCV MCH MCHC RDW Plt Count MPV Sodium Potassium Chloride Carbon Dioxide Anion Gap BUN Creatinine Estim Creat Clear Calc Estimated GFR Glucose POC Capillary Glucose 167 H 267 H 301 H Calculated Osmolality Calcium Total Bilirubin AST ALT Alkaline Phosphatase Total Protein Albumin 05/22/24 05:25 WBC 5.6 RBC 3.74 L Hgb 10.6 L Hct 32.0 L MCV 85.6 MCH 28.3 MCHC 33.1 RDW 14.7 H Plt Count 217 MPV 8.4 L Sodium 125 L Potassium 5.4 H Chloride 90 L Carbon Dioxide 35 H Anion Gap 0 L BUN 13 Creatinine 0.72 Estim Creat Clear Calc 75 Estimated GFR > 60 Glucose 200 H POC Capillary Glucose Calculated Osmolality 266 L Calcium 8.3 L Total Bilirubin 1.1 H AST 13 L ALT 10 L Alkaline Phosphatase 70 Total Protein 6.7 Albumin 2.4 L Quality VTE Prophylaxis VTE prophylaxis: pharmacologic ordered -Patient's previous records reviewed on admission -ER notes reviewed in detail on admission -discussed all findings and current treatment plan with patient/Family/POA -Consultations reviewed for recommendations -Patient's disposition for safe discharge discussed with caser up Dictation performed by [employer] direct speech recognition software, therefore camelid fiber sorter variants and typographical errors may occur. Hospitalist MIPS Advance Care Plan I have confirmed that the patient's Advanced Care Plan is present, code status is documented, or surrogate decision maker is listed in patient medical record.: Yes Medication Reconciliation I have utilized all available resources to obtain, update and review the p atients current medications (includes all prescriptions, OTC, herbals, cannabis, and nutritional supplements).: Yes The patient is not eligible for med reconciliation; the patient is in a emergent medical situation where delaying treatment would jeopardize the patients health.: No
[2024-05-22 11:54] LABS: Glucose Point of Care 347 mg/dl (65-105)
[2024-05-22] MEDS: INSULIN HUMAN LISPRO (*BKC) 1,000 UNITS/10 ML VIAL SUB-Q ×2 (11:59→17:15)
[2024-05-22 15:17] LABS: Anion Gap 1 mmol/L (4-12); Blood Urea Nitrogen 14 mg/dL (7-18); Calcium 8.4 mg/dL (8.5-10.1); Carbon Dioxide 35 mmol/L (21-32); Chloride 88 mmol/L (98-108); Estimated CRCL calculation 64 ml/min; Estimated Glomerular Filt Rate > 60; Glucose 301 mg/dL (70-99); Osmolality Calculated 269 mOsm/kg (285-295); Potassium 4.8 mmol/L (3.5-5.1); Sodium 124 mmol/L (136-145)
[2024-05-22 16:44] LABS: Glucose Point of Care 307 mg/dl (65-105)
[2024-05-22] MEDS: levoFLOXacin TAB 500 MG, levoFLOXacin TAB 250 MG 750 MG PO (20:30)
[2024-05-22 20:43] LABS: Glucose Point of Care 318 mg/dl (65-105)
[2024-05-23] VITALS (9 sets, daily range): BP systolic 104–110; BP diastolic 53–72; PULSE 63–87; RESP 18–22; TEMP 36.4–37.8; O2SAT 90–98
[2024-05-23 05:26] LABS: Hematocrit 30.5 % (37.0-46.0); Hemoglobin 10.4 g/dL (12.4-15.3); Mean Corpuscular HGB Conc 34.1 g/dL (32-36); Mean Corpuscular Hemoglobin 28.8 pg (27.0-31.0); Mean Corpuscular Volume 84.5 fL (78.0-102.0); Mean Platelet Volume 8.7 fl (8.7-11.0); Platelet Count Result 223 K/mm3 (150-420); Red Blood Count 3.61 M/mm3 (4.70-6.10); Red Cell Distribution Width 14.7 % (11.6-14.4); White Blood Count 7.4 K/mm3 (4.8-10.8)
[2024-05-23] MEDS: IPRATROPIUM 0.5 MG/ALBUTEROL SULFATE 2.5 MG AMPUL.NEB 3 ML INHALATION ×3 (05:32→18:46)
[2024-05-23 05:40] LABS: Alanine Aminotransferase 10 U/L (16-63); Albumin Level 2.3 g/dL (3.4-5.0); Alkaline Phosphatase 70 U/L (46-116); Anion Gap 2 mmol/L (4-12); Aspartate Amino Transferase 12 U/L (15-37); Bilirubin,Total 1.4 mg/dL (0.00-1.00); Blood Urea Nitrogen 14 mg/dL (7-18); Calcium 8.1 mg/dL (8.5-10.1); Carbon Dioxide 35 mmol/L (21-32); Chloride 89 mmol/L (98-108); Estimated CRCL calculation 77 ml/min; Estimated Glomerular Filt Rate > 60; Glucose 182 mg/dL (70-99); Osmolality Calculated 267 mOsm/kg (285-295); Potassium 4.9 mmol/L (3.5-5.1); Sodium 126 mmol/L (136-145); Total Protein 6.6 g/dL (6.4-8.2)
[2024-05-23] MEDS: TAMSULOSIN HCL 0.4 MG CAPSULE PO (09:12)
[2024-05-23] MEDS: guaiFENesin 12 HR 600 MG TABCR 1200 MG PO ×2 (09:12→20:11)
[2024-05-23] MEDS: ENOXAPARIN 40 MG/0.4 ML SYRINGE SUB-Q (09:12)
--- NOTE | 2024-05-23 10:56 | P.PNIM_ITS ---
Progress Note: A&P Assessment and Plan (1) Pneumonia: Code(s): J18.9 - Pneumonia, unspecified organism Status: Acute Assessment and Plan: * Bronchodilators. * Chest x-ray ILD with possible superimposed pulmonary edema versus Pneumonia * incentive spirometry likely unable to perform * Normal WBC * influenza/COVID/RSV negative * Levaquin to cover Pseudomonas just treated with IM Rocephin * Mucolytics * supplemental oxygen therapy to maintain oxygen 92% (2) Chronic interstitial lung disease: Code(s): J84.9 - Interstitial pulmonary disease, unspecified Status: Acute Assessment and Plan: * Appears to be stable * Patient is to wear 2 L nasal cannula * Follows with finance attorney outpatient (3) Urinary retention: Code(s): R33.9 - Retention of urine, unspecified Status: Acute Assessment and Plan: * Recently treated with Rocephin IM for UTI * Seen 05/13 for hematuria * UA clean * Bladder scan with greater than 600 mL postvoid * Parra catheter placed * Flomax initiated * Previous CT scan shows a large prostate * Can follow-up with Urology outpatient for bladder trials 05/21/24: * likely attempt bladder trial tomorrow * will still need referral to urology (4) Hyponatremia: Code(s): E87.1 - Hypo-osmolality and hyponatremia Status: Acute Assessment and Plan: * 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 HS * sliding scale insulin * hold oral diabetic medications * Watch for hypoglycemia/hypoglycemic protocol ordered (6) Hypoglycemia: Code(s): E16.2 - Hypoglycemia, unspecified Status: Acute Assessment and Plan: * Episode of hypoglycemia 20's * likely secondary to poor oral intake * D50 administered and started on dextrose 5%/water * overall improved * d/c dextrose once good oral intake returns (7) Hyperkalemia: Code(s): E87.5 - Hyperkalemia Status: Acute Assessment and Plan: * K 5.4 * Lokelma x 2 * Lasix 20mg x 1 * repeat BMP RESOLVED Plan Code status: DNR DVT prophylaxis: Lovenox Stress ulcer prophylaxis: Protonix 40 daily PT/OT notes: PT/OT pending Disposition: Patient was admitted to the medical unit for further evaluation and treatment of possible pneumonia, urinary retention, and hyponatremia. Patient is from assisted living facility will need to be evaluated prior to returning may need [facility] facility at discharge care coordination assisting. plan to complete a bladder trial unsure if assisted living will take patient back with urinary Parra catheter if needed patient will need a referral and follow up with Urology. Plan to discharge to swing bed tomorrow if no events overnight. Time Spent With Patient Time with patient: 15 - 25 minutes Subjective Date/time seen: 05/23/24 10:56 Interval history: Patient is 83-year-old male who was admitted to the medical unit for pneumonia and urinary retention 05/23/2024: Patient alert and answering questions, up in chair eating breakfast. Patient with no complaints states he is feeling better, still mild crackles at bases of lungs will give IV lasix x 1 again today. Plan to discharge to swing tomorrow for continued rehab and bladder trails. Review of Systems Review of Systems: All systems reviewed & are unremarkable except as noted in HPI and below ROS unobtainable: Yes unobtainable due to medical condition and unobtainable due to mental status Exam Narrative: * GENERAL: Alert and oriented x 1 will respond to name and answer some questions correctly. * EYES: PERRLA. * HEENT: Moist mucous membranes. * LUNGS: Wheezing throughout and bilateral LL crackles auscultation bilaterally. No accessory muscle use. On 2L NC * CARDIOVASCULAR: Regular rate and rhythm. No murmur. No JVD. S1-S2 * ABDOMEN: Soft, non tenderness and non-distended. No palpable masses. * : Parra urinary catheter in place, clear yellow urine * EXTREMITIES: No edema. Non-tender * SKIN: No rashes or lesions. Skin warm, dry. * NEUROLOGIC: No focal neurological deficits. CN II-XII grossly intact * PSYCHIATRIC: Good mood and affect. Objective Data Vital Signs Vital Signs: Vital Signs - 24 hr 05/22/24 11:20 05/22/24 11:29 05/22/24 12:00 Temperature Pulse Rate 83 85 82 Respiratory Rate 20 20 17 Blood Pressure 108/65 Pulse Oximetry 95 98 94 Oxygen Delivery Room Air Oxygen Flow Rate 2 05/22/24 16:45 05/22/24 16:00 05/22/24 16:56 Temperature 97.8 F Pulse Rate 83 72 86 Respiratory Rate 20 18 20 Blood Pressure 93/50 L Pulse Oximetry 96 93 98 Oxygen Delivery Room Air Oxygen Flow Rate 05/22/24 17:00 05/22/24 20:00 05/22/24 23:35 Temperature 97 F L 99.2 F Pulse Rate 88 83 83 Respiratory Rate 22 H 18 20 Blood Pressure 110/78 106/59 L Pulse Oximetry 92 91 90 Oxygen Delivery Nasal Cannula Nasal Cannula Oxygen Flow Rate 2 2 2 05/23/24 00:00 05/23/24 04:00 05/23/24 05:30 Temperature 100.0 F H 98.1 F Pulse Rate 83 71 71 Respiratory Rate 20 18 18 Blood Pressure 110/64 110/72 Pulse Oximetry 90 92 92 Oxygen Delivery Nasal Cannula Nasal Cannula Oxygen Flow Rate 2 2 2 05/23/24 05:45 Temperature Pulse Rate 71 Respiratory Rate 18 Blood Pressure Pulse Oximetry 98 Oxygen Delivery Oxygen Flow Rate 2 Intake/Output Intake/Output: Intake & Output 05/20/24 05/21/24 05/22/24 05/23/24 23:59 23:59 23:59 23:59 Intake Total 1580.0 2166.2 1520 120 Output Total 3500 575 2150 800 Balance -1920.0 1591.2 -630 -680 Meds/Results Medications: Active Medications Generic Name Dose Route Start Last Admin Trade Name Freq PRN Reason Stop Dose Admin Acetaminophen 650 mg 05/20/24 00:26 Acetaminophen 325 Mg Tablet PO Q4H PRN Mild Pain (1-3) or Fever Albuterol/Ipratropium 3 ml 05/20/24 12:30 05/23/24 05:32 Ipratropium 0.5 Mg/Albuterol Sulfate 2.5 Mg Ampul.Neb 3 Ml INHALATION 3 ml Q6HRT DOM Administration Alprazolam 0.5 mg 05/21/24 11:03 05/21/24 21:46 Alprazolam (*Crx) 0.5 Mg Tablet PO 0.5 mg BID PRN Administration Anxiety Dextrose 12.5 gm 05/20/24 08:24 05/20/24 17:38 Dextrose 50% 25 Gm/50 Ml Syringe IV PUSH 12.5 gm PRN PRN Administration Hypoglycemia Protocol Enoxaparin Sodium 40 mg 05/21/24 09:00 05/23/24 09:12 Enoxaparin 40 Mg/0.4 Ml Syringe SUB-Q 40 mg DAILY DOM Administration Glucagon 1 mg 05/20/24 08:24 Glucagon For Inj 1 Mg Vial IM PRN PRN Hypoglycemia Protocol Glucose 15 gm 05/20/24 08:24 Glucose Oral Gel 15 Gm Of Glucse In 37.5 Gm Tube PO PRN PRN Hypoglycemia Protocol Guaifenesin 1,200 mg 05/20/24 09:00 05/23/24 09:12 Guaifenesin 12 Hr 600 Mg Tabcr PO 1,200 mg Q12HR DOM Administration Dextrose 1,000 mls @ 100 mls/hr 05/20/24 08:24 Dextrose 5% 1,000 Ml IVPB PRN PRN Hypoglycemia Protocol Insulin Human Lispro 2 - 5 units 05/20/24 12:00 05/23/24 08:00 Insulin Human Lispro (*Bkc) 1,000 Units/10 Ml Vial SUB-Q Not Given TIDWM [facility] Protocol Levofloxacin 500 mg/ 750 mg 05/22/24 21:00 05/22/24 20:30 Levofloxacin 250 mg PO 05/23/24 21:01 750 mg DAILY@2100 DOM Administration Ondansetron HCl 4 mg 05/20/24 08:21 Ondansetron Inj 4 Mg/2 Ml Vial IV PUSH Q6H PRN Nausea And Vomiting Tamsulosin HCl 0.4 mg 05/21/24 09:00 05/23/24 09:12 Tamsulosin Hcl 0.4 Mg Capsule PO 0.4 mg QAM DOM Administration Radiology Results: ITS Impressions Chest X-Ray 05/19/24 23:44 IMPRESSION: 1. Diffuse coarse reticular and increasing groundglass opacities in both lungs with peripheral lower lung predominance. This could represent either progression of chronic UIP pattern of interstitial lung disease or interval development of superimposed pulmonary edema or pneumonia. Labs Labs: Laboratory Results - last 24 hr 05/22/24 05/22/24 05/22/24 11:50 15:02 16:42 WBC RBC Hgb Hct MCV MCH MCHC RDW Plt Count MPV Sodium 124 L Potassium 4.8 Chloride 88 L Carbon Dioxide 35 H Anion Gap 1 L BUN 14 Creatinine 0.86 Estim Creat Clear Calc 64 Estimated GFR > 60 Glucose 301 H POC Capillary Glucose 347 H 307 H Calculated Osmolality 269 L Calcium 8.4 L Total Bilirubin AST ALT Alkaline Phosphatase Total Protein Albumin 05/22/24 05/23/24 20:36 05:08 WBC 7.4 RBC 3.61 L Hgb 10.4 L Hct 30.5 L MCV 84.5 MCH 28.8 MCHC 34.1 RDW 14.7 H Plt Count 223 MPV 8.7 Sodium 126 L Potassium 4.9 Chloride 89 L Carbon Dioxide 35 H Anion Gap 2 L BUN 14 Creatinine 0.70 Estim Creat Clear Calc 77 Estimated GFR > 60 Glucose 182 H POC Capillary Glucose 318 H Calculated Osmolality 267 L Calcium 8.1 L Total Bilirubin 1.4 H AST 12 L ALT 10 L Alkaline Phosphatase 70 Total Protein 6.6 Albumin 2.3 L Quality VTE Prophylaxis VTE prophylaxis: pharmacologic ordered -Patient's previous records reviewed on admission -ER notes reviewed in detail on admission -discussed all findings and current treatment plan with patient/Family/POA -Consultations reviewed for recommendations -Patient's disposition for safe discharge discussed with immigration case worker Dictation performed by [employer] direct speech recognition software, therefore director of operations support variants and typographical errors may occur. Hospitalist MIPS Advance Care Plan I have confirmed that the patient's Advanced Care Plan is present, code status is documented, or surrogate decision maker is listed in patient medical record.: Yes Medication Reconciliation I have utilized all available resources to obtain, update and review the patients current medications (includes all prescriptions, OTC, herbals, cannabis, and nutritional supplements).: Yes The patient is not eligible for med reconciliation; the patient is in a emergent medical situation where delaying treatment would jeopardize the patients health. : No
[2024-05-23] MEDS: FUROSEMIDE INJ 20 MG/2 ML VIAL IV PUSH (11:56)
[2024-05-23 12:09] LABS: Glucose Point of Care 229 mg/dl (65-105)
[2024-05-23] MEDS: INSULIN HUMAN LISPRO (*BKC) 1,000 UNITS/10 ML VIAL SUB-Q ×2 (12:24→17:02)
[2024-05-23 17:06] LABS: Glucose Point of Care 237 mg/dl (65-105)
[2024-05-23] MEDS: levoFLOXacin TAB 500 MG, levoFLOXacin TAB 250 MG 750 MG PO (20:11)
[2024-05-23] MEDS: ACETAMINOPHEN 325 MG TABLET 650 MG PO (20:11)
[2024-05-23] MEDS: ALPRAZolam (*CRX) 0.5 MG TABLET PO (20:11)
[2024-05-23 20:12] LABS: Glucose Point of Care 155 mg/dl (65-105)
[2024-05-24] VITALS: BP 108/69; PULSE 95; RESP 20; TEMP 37.7; O2SAT 93
[2024-05-24 00:40] VITALS: PULSE 63; RESP 20; O2SAT 92
[2024-05-24] MEDS: IPRATROPIUM 0.5 MG/ALBUTEROL SULFATE 2.5 MG AMPUL.NEB 3 ML INHALATION ×2 (00:41→05:53)
[2024-05-24 05:30] VITALS: O2SAT 98
[2024-05-24 05:50] VITALS: PULSE 65; RESP 20; O2SAT 92
[2024-05-24 07:08] LABS: Hemoglobin 10.4 g/dL (12.4-15.3); Mean Corpuscular HGB Conc 32.5 g/dL (32-36); Mean Corpuscular Hemoglobin 27.7 pg (27.0-31.0); Mean Corpuscular Volume 85.3 fL (78.0-102.0); Mean Platelet Volume 8.9 fl (8.7-11.0); Platelet Count Result 237 K/mm3 (150-420); Red Blood Count 3.75 M/mm3 (4.70-6.10); Red Cell Distribution Width 14.9 % (11.6-14.4); White Blood Count 5.6 K/mm3 (4.8-10.8)
[2024-05-24 07:27] LABS: Alanine Aminotransferase 17 U/L (16-63); Albumin Level 2.3 g/dL (3.4-5.0); Alkaline Phosphatase 67 U/L (46-116); Anion Gap 1 mmol/L (4-12); Aspartate Amino Transferase 12 U/L (15-37); Bilirubin,Total 1.1 mg/dL (0.00-1.00); Blood Urea Nitrogen 16 mg/dL (7-18); Calcium 8.5 mg/dL (8.5-10.1); Carbon Dioxide 36 mmol/L (21-32); Chloride 90 mmol/L (98-108); Estimated CRCL calculation 70 ml/min; Estimated Glomerular Filt Rate > 60; Glucose 240 mg/dL (70-99); Osmolality Calculated 273 mOsm/kg (285-295); Potassium 4.3 mmol/L (3.5-5.1); Sodium 127 mmol/L (136-145); Total Protein 6.8 g/dL (6.4-8.2)
[2024-05-24 08:00] VITALS: BP 128/84; PULSE 86; RESP 24; TEMP 36.4; O2SAT 98
--- NOTE | 2024-05-24 08:39 | P.DS_ITS ---
DS: Admitting Diagnosis Discharge Date 05/24/2024 Admitting Diagnosis Pneumonia/Hyponatremia DS: Discharge Diagnosis Discharge Diagnosis (1) Pneumonia: Code(s): J18.9 - Pneumonia, unspecified organism Status: Acute (2) Chronic interstitial lung disease: Code(s): J84.9 - Interstitial pulmonary disease, unspecified Status: Acute (3) Urinary retention: Code(s): R33.9 - Retention of urine, unspecified Status: Acute (4) Hyponatremia: Code(s): E87.1 - Hypo-osmolality and hyponatremia Status: Acute (5) Diabetes: Code(s): E11.9 - Type 2 diabetes mellitus without complications Status: Acute (6) Hypoglycemia: Code(s): E16.2 - Hypoglycemia, unspecified Status: Acute (7) Hyperkalemia: Code(s): E87.5 - Hyperkalemia Status: Acute Plan Disposition: Discharged to [facility] DS: Summary Hospital Course Reason for hospitalization: Pneumonia/hyponatremia/urinary retention Hospital Course: Patient was a 83-year-old male who presented to the emergency department from a local assisted living facility with complaints of feeling cold all day even though his apartment was set at [address]?. Minimal information from patient due to mental status chronic A&O x1 most information was from patient's power of health care attorney medical records. Patient has known medical history of autism, chronic interstitial pulmonary fibrosis, and BPH. Per family patient had also just completed a 5 day course of IM Rocephin for urinary tract infection was last seen in the emergency department for hematuria. Upon assessment patient was extremely anxious and continued to state he was in pain in holding his belly. Family also reported new episodes of incontinence and requested bladder scan to be performed postvoid patient was greater than 600 Parra catheter was then placed and patient's agitation improved. Findings in the emergency department showed a chest x-ray with possible superimposed pulmonary edema or pneumonia, with normal WBC negative for COVID, influenza and RSV, and hyponatremia at 121. Patient was admitted to the medical unit for further evaluation and treatment of hyponatremia, urinary retention and possible pneumonia. patient received Levaquin x5 days and continued with fluid restriction and Lasix x2 doses with improvement to his hyponatremia. Patient's respiratory status returned to baseline was weaned to his 2 L nasal cannula denied any further shortness breath, chest pain, nausea, vomiting, abdominal pain, dizziness. patient's orientation improved to his baseline was alert and oriented 1-2 and able to answer questions patient does have underlying autism. patient was seen Physical and Occupational therapy with recommendation for patient to continue rehab. patient was [facility] for further rehabilitation with urinary Parra catheter will continue to monitor his urinary status and attempt bladder trials after a few more days Flomax. Patient will likely need follow-up referral to Urology outpatient if urinary retention continues. Status at Discharge Functional status at discharge: uses cane/walker Overall status at discharge: patient is back to baseline Time Spent with Patient Time attestation: Total time spent providing and/or coordinating discharge services: Time spent: Greater than 30 minutes Exam Narrative: * GENERAL: Alert and oriented x 1 will respond to name and answer some questions correctly. * EYES: PERRLA. * HEENT: Moist mucous membranes. * LUNGS: Wheezing throughout and bilateral LL crackles auscultation bilaterally. No accessory muscle use. On 2L NC * CARDIOVASCULAR: Regular rate and rhythm. No murmur. No JVD. S1-S2 * ABDOMEN: Soft, non tenderness and non-distended. No palpable masses. * : Parra urinary catheter in place, clear yellow urine * EXTREMITIES: No edema. Non-tender * SKIN: No rashes or lesions. Skin warm, dry. * NEUROLOGIC: No focal neurological deficits. CN II-XII grossly intact * PSYCHIATRIC: Good mood and affect. DS: Data Data Completed and Pending Labs on day of discharge: Labs from last 24 hours 05/24/24 05/23/24 05/23/24 06:40 20:11 17:01 WBC 5.6 RBC 3.75 L Hgb 10.4 L Hct 32.0 L MCV 85.3 MCH 27.7 MCHC 32.5 RDW 14.9 H Plt Count 237 MPV 8.9 Sodium 127 L Potassium 4.3 Chloride 90 L Carbon Dioxide 36 H Anion Gap 1 L BUN 16 Creatinine 0.77 Estim Creat Clear Calc 70 Estimated GFR > 60 Glucose 240 H POC Capillary Glucose 155 H 237 H Calculated Osmolality 273 L Calcium 8.5 Total Bilirubin 1.1 H AST 12 L ALT 17 Alkaline Phosphatase 67 Total Protein 6.8 Albumin 2.3 L 05/23/24 12:04 WBC RBC Hgb Hct MCV MCH MCHC RDW Plt Count MPV Sodium Potassium Chloride Carbon Dioxide Anion Gap BUN Creatinine Estim Creat Clear Calc Estimated GFR Glucose POC Capillary Glucose 229 H Calculated Osmolality Calcium Total Bilirubin AST ALT Alkaline Phosphatase Total Protein Albumin Preliminary micro results at discharge 05/19/24 23:13 Blood Culture - Preliminary Blood 05/19/24 23:13 Blood Culture - Preliminary Blood Imaging Radiologist's impression: Radiology Results: ITS Impressions Chest X-Ray 05/19/24 23:44 IMPRESSION: 1. Diffuse coarse reticular and increasing groundglass opacities in both lungs with peripheral lower lung predominance. This could represent either progression of chronic UIP pattern of interstitial lung disease or interval development of superimposed pulmonary edema or pneumonia. Discharge Plan Discharge Attending physician on discharge: Christiano Hernandez Discharging Clinician: Yane Clark Anticipated Discharge Date/Time: 05/24/24 08:33 Patient Disposition: Hospital Swing Bed Activity: as tolerated Diet: heart healthy and other - see discharge instructions Discharge Instructions: You are being discharged to a Swing bed for continued therapy after treatment for Pneumonia and hyponatremia (low sodium). Please continue with fluid restriction and will add salt tablets. You have completed your antibiotic cou rse for Pneumonia but still encourage using the incentive spirometer. 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) Patient Language: Croatian Stand Alone Forms: General Discharge Information Discharge Medications: New alprazolam 0.5 mg Tablet 0.5 mg PO BID PRN (Reason: Anxiety) Qty: 1 0RF acetaminophen 325 mg Tablet 650 mg PO Q4H PRN (Reason: Mild Pain (1-3) Or Fever) Qty: 1 0RF tamsulosin 0.4 mg Capsule 0.4 mg PO QAM Qty: 1 0RF dextrose [Glutose-15] 40 % Gel 15 g PO PRN PRN (Reason: Hypoglycemia) Qty: 112.5 0RF guaifenesin [Mucus Relief ER] 600 mg Tablet Extended Release 12hr 1,200 mg PO Q12HR Qty: 1 0RF Continued metformin 500 mg tablet 500 mg PO BID krill oil 500 mg capsule 500 mg PO DAILY Date of admission: 05/20/24 00:26 Primary Care Provider: Bhaskar Ross Admitting Provider: Mary,Christiano Attending physician on admission: Yane Clark Condition: Stable Quality -Patient's previous records reviewed on admission -ER notes reviewed in detail on admission -discussed all findings and current treatment plan with patient/Family/POA -Consultations reviewed for recommendations -Patient's disposition for safe discharge discussed with lead case manager Dictation performed by [employer] direct speech recognition software, therefore pediatric occupational therapist variants and typographical errors may occur. Hospitalist MIPS Heart Failure (Exclusion) Patient has history of Heart Transplant or Left Ventricular Assistive Device?: No IF YES, STOP HERE Heart Failure (Qualifier) Patient has current or prior documentation of LVEF less than or equal to 40%, or mod/servere depressed LVSF?: No IF NO, STOP HERE
[2024-05-24] MEDS: INSULIN HUMAN LISPRO (*BKC) 1,000 UNITS/10 ML VIAL SUB-Q (08:41)
[2024-05-24] MEDS: guaiFENesin 12 HR 600 MG TABCR 1200 MG PO (08:44)
[2024-05-24] MEDS: TAMSULOSIN HCL 0.4 MG CAPSULE PO (08:44)
[2024-05-24] MEDS: ENOXAPARIN 40 MG/0.4 ML SYRINGE SUB-Q (08:44)
--- NOTE | 2024-05-24 09:10 | PC.NURSE ---
Patient discharged to swing bed
== END 2024-05-24 08:36 | disposition swing bed (61) | DRG 194 ==
LOC: CHSED 05-20 00:26 → CHS2ND 05-20 07:35
PROVIDERS: Admitting Provider Internal Medicine; Emergency Provider Emergency Medicine; PCP Internal Medicine; Visit Provider Nurse Practitioner Family
DX: J18.9 Pneumonia, unspecified organism (principal); E87.1 Hypo-osmolality and hyponatremia; F84.0 Autistic disorder; J84.10 Pulmonary fibrosis, unspecified; E87.5 Hyperkalemia; N40.1 Benign prostatic hyperplasia with lower urinary tract symptoms; R33.8 Other retention of urine; E11.9 Type 2 diabetes mellitus without complications
CPT/HCPCS: 36415; 71045; 80048; 80053; 81001; 82947; 82948; 83605; 83735; 83880; 85025; 85027; 85610; 85730; 87040; 87636; 94640; 97161; 97530; 99285; A9270; J0696; J1650; J1815; J1940; J1956; J2060; J2270; J3475; J7030; J7070

== ENCOUNTER 2024-05-24 08:37 | Inpatient (IN) | payer MEDICARE, SELFPAY ==
--- NOTE | ~2024-05-24 | XR_ITS ---
EXAMINATION: XR abdomen/kub 1V DATE: 05/27/2024 08:16 INDICATION: Abdominal pain and bloating. TECHNIQUE: A supine view of the abdomen on 2 radiographs was obtained. COMPARISON: CT abdomen and pelvis 05/13/2024 FINDINGS: The stomach is distended. There is a large volume of stool in the colon. The small and larg e bowel are normal in caliber. Chronic interstitial lung disease is noted. IMPRESSION: 1. Large volume of stool in the colon. 2. Stomach distention. Reviewed, dictated and finalized at location []
--- NOTE | 2024-05-24 09:15 | ADMGEN ---
This patient, Ayush Parkinson, was admitted to 2nd Floor Room 208-1. Patient/family oriented to hospital policies and general routines including ID bracelet, bed and alarms, visiting hours, pain management, procedures, bathroom and other care routines, personal items, smoking policy, room service/diet, and visiting hours. Information on how to activate the Rapid Response Team has been discussed. Patient/Family are encouraged to report perceived risks to care and to ask questions if they do not understand what they are told or what they should do.
[2024-05-24 09:30] VITALS: O2SAT 98
[2024-05-24 09:35] VITALS: PULSE 86; RESP 24; O2SAT 98
[2024-05-24 11:21] VITALS: BMI 26.4
[2024-05-24 16:00] VITALS: BP 106/66; PULSE 88; RESP 22; TEMP 36; O2SAT 92
[2024-05-24 16:50] LABS: Glucose Point of Care 252 mg/dl (65-105)
[2024-05-24] MEDS: INSULIN HUMAN LISPRO (*BKC) 1,000 UNITS/10 ML VIAL SUB-Q (17:16)
[2024-05-24] MEDS: metFORMIN HCL 500 MG TABLET PO (17:16)
[2024-05-24] MEDS: IPRATROPIUM 0.5 MG/ALBUTEROL SULFATE 2.5 MG AMPUL.NEB 3 ML INHALATION ×2 (18:58→23:45)
[2024-05-24 20:00] VITALS: PULSE 88; RESP 20; O2SAT 92
[2024-05-24] MEDS: guaiFENesin 12 HR 600 MG TABCR 1200 MG PO (20:15)
[2024-05-24] MEDS: ACETAMINOPHEN 325 MG TABLET 650 MG PO (20:15)
[2024-05-24] MEDS: ALPRAZolam (*CRX) 0.5 MG TABLET PO (20:15)
[2024-05-24] MEDS: ONDANSETRON HCL ODT 4 MG TABLET PO (20:15)
[2024-05-24 20:19] LABS: Glucose Point of Care 185 mg/dl (65-105)
[2024-05-24 23:50] VITALS: PULSE 88; RESP 20; O2SAT 92
[2024-05-25] VITALS (19 sets, daily range): BP systolic 102–113; BP diastolic 66–75; PULSE 74–91; RESP 20–24; TEMP 36.2–36.6; O2SAT 84–98
[2024-05-25] MEDS: IPRATROPIUM 0.5 MG/ALBUTEROL SULFATE 2.5 MG AMPUL.NEB 3 ML INHALATION ×3 (05:33→16:40)
--- NOTE | 2024-05-25 07:48 | P.HP_ITS ---
H&P: HPI History of Present Illness Date/Time: 05/25/24 07:48 Chief Complaint: deconditioned/ unsteady gait Narrative: Patient is a 83-year-old male who was admitted to the [facility] swing bed for continued rehabilitation with physical and occupational therapy he was had been admitted to the medical unit after treatment for pneumonia, hyponatremia, and urinary retention. Patient has known medical history of autism, chronic interstitial pulmonary fibrosis, and BPH. Per family patient had also just completed a 5 day course of IM Rocephin for urinary tract infection was last seen in the emergency department for hematuria. Family also reported new episodes of incontinence bladder scan was performed postvoid patient was greater than 600 Parra catheter was then placed and patient's had overall improvement. Patient had been placed on fluid restriction with improvement to hyponatremia. Patient was discharged from medical unit and admitted to Swing bed with plan for PT/OT with hopeful plan to return to assisted living. Review of Systems Review of Systems: All systems reviewed & are unremarkable except as noted in HPI and below PMFSH Surgical History Surgical History H/O foot surgery Family History Family History Sibling Family history of blood dyscrasia Family history of diabetes mellitus in first degree relative Family history of atrial fibrillation Father Family history of heart disease in male family member before age 55 Grandparent Diabetes mellitus Social History Social History Smoking status: Never smoker Alcohol intake: never Substance use: never Substance use type: does not use Do You Feel Safe in your Home?: Yes Lack of Transportation: No Lack of Food: Never True Current Housing: I Have Housing Concerned About Future Housing: No Difficulty Paying Gas/Electric Bills: No Difficulty Paying for Meds: No Currently Unemployed: No Education: Grade School Difficulty w/ Childcare or Family Care: No Spiritual care concerns: No Meds Home Medications and Allergies Home Medications Medication Instructions Recorded Confirmed Type krill oil 500 mg capsule 500 mg PO DAILY 01/08/23 05/24/24 History metformin 500 mg tablet 500 mg PO BID 07/31/23 05/24/24 History Mucinex 1,200 mg BYMOUTH Q12H 05/24/24 05/24/24 History acetaminophen 325 mg tablet 650 mg PO Q4-6H PRN Pain, Mild 05/24/24 05/24/24 History (Tylenol) alprazolam 0.5 mg tablet 0.5 mg PO BID PRN Anxiety #1 tablet 05/24/24 05/24/24 Rx ipratropium 0.5 mg-albuterol 3 mg 3 ml inhalation Q6H 05/24/24 05/24/24 History (2.5 mg base)/3 mL nebulization soln Allergies Allergy/AdvReac Type Severity Reaction Status Date / Time No Known Allergies Allergy Verified 01/22/24 09:59 Vital Signs Vital Signs - 24 hr 05/24/24 09:35 05/24/24 16:00 05/24/24 20:00 Temperature 96.8 F L Pulse Rate 86 88 88 Respiratory Rate 24 H 22 H 20 Blood Pressure 106/66 Pulse Oximetry 98 92 92 Oxygen Delivery Nasal Cannula Nasal Cannula Nasal Cannula Oxygen Flow Rate 2 2 2 05/24/24 23:50 05/25/24 00:05 05/25/24 00:00 Temperature 97.7 F Pulse Rate 88 78 78 Respiratory Rate 20 20 20 Blood Pressure 113/75 Pulse Oximetry 92 96 93 Oxygen Delivery Nasal Cannula Oxygen Flow Rate 2 2 2 05/24/24 09:30 05/25/24 05:33 05/25/24 05:43 Temperature Pulse Rate 78 74 Respiratory Rate 20 20 Blood Pressure Pulse Oximetry 98 90 97 Oxygen Delivery Oxygen Flow Rate 2 2 Exam Narrative: Physical Exam: * GENERAL: Alert and oriented x 1 will respond to name and answer some questions correctly. * EYES: EOMI. No scleral icterus. PERRLA. * HEENT: Moist mucous membranes. * LUNGS: Wheezing throughout auscultation bilaterally. No accessory muscle use. * CARDIOVASCULAR: Regular rate and rhythm. No murmur. No JVD. S1-S2 * ABDOMEN: Soft, non tenderness and non-distended. No palpable masses. * EXTREMITIES: No edema. Non-tender * SKIN: No rashes or lesions. Skin warm, dry. * NEUROLOGIC: No focal neurological deficits. CN II-XII grossly intact * PSYCHIATRIC: Agitated mood and affect. Urinary Catheter: Urinary Catheter: patent and draining and urine clear Assessment and Plan Assessment and plan (1) Unsteady gait: Code(s): R26.81 - Unsteadiness on feet Status: Acute Assessment and Plan: * Recent hospitalization for Pneumonia/urinary retention/hyponatremia * Swing bed for rehabilitation * PT/OT * POA would like patient to return to assisted living following admission (2) Urinary retention: Code(s): R33.9 - Retention of urine, unspecified Status: Acute Assessment and Plan: * Recently treated with Rocephin IM for UTI O/P prior to medical admission * Seen 05/13 for hematuria * UA clean * Bladder scan with greater than 600 mL postvoid during medical admission * Parra catheter placed * Flomax initiated * Previous CT scan shows a large prostate * Can follow-up with Urology outpatient for bladder trials * Will attempt bladder trials (3) Hyponatremia: Code(s): E87.1 - Hypo-osmolality and hyponatremia Status: Acute Assessment and Plan: * Likely secondary to SIADH * NA 127 POA * Fluid restriction * Sodium Tablets 500mg BID * Follow-up BMP 05/27 * Patient needs continued re-direction on fluid restriction (4) Syndrome of inappropriate ADH (SIADH) secretion: Code(s): E22.2 - Syndrome of inappropriate secretion of antidiuretic hormone Status: Acute Assessment and Plan: * SEE ABOVE (5) Chronic interstitial lung disease: Code(s): J84.9 - Interstitial pulmonary disease, unspecified Status: Acute Assessment and Plan: * History of pulmonary fibrosis * Appears to be stable * Patient is to wear 2 L nasal cannula * Follows with vessel builder outpatient (6) Diabetes: Code(s): E11.9 - Type 2 diabetes mellitus without complications Status: Acute Assessment and Plan: * Accu-Cheks a.c. HS * sliding scale insulin * Resumed oral diabetic medications * Diabetic diet * Watch for hypoglycemia/hypoglycemic protocol ordered Plan Code status: DNR/DNI per POA PT/OT notes: Swing Bed Disposition: patient was admitted to [facility] for continued rehabilitation with PT OT will continue to attempt bladder trials to remove Parra catheter POA is hopeful patient can return to assisted living following admission. Quality If No VTE Prophylaxis Answer both mechanical and pharmacologic: Reason no mechanical VTE proph: low risk/not indicated -Patient's previous records reviewed on admission -ER notes reviewed in detail on admission -discussed all findings and current treatment plan with patient/Family/POA -Consultations reviewed for recommendations -Patient's disposition for safe discharge discussed with case briefer Dictation performed by [employer] direct speech recognition software, therefore commercial baker helper variants and typographical errors may occur. Hospitalist SHASHANK Advance Care Plan I have confirmed that the patient's Advanced Care Plan is present, code status is documented, or surrogate decision maker is listed in patient medical record.: Yes Medication Reconciliation I have utilized all available resources to obtain, update and review the patients current medications (includes all prescriptions, OTC, herbals, cannabis, and nutritional supplements).: Yes The patient is not eligible for med reconciliation; the patient is in a emergent medical situation where delaying treatment would jeopardize the patients health.: No
[2024-05-25 07:50] LABS: Glucose Point of Care 184 mg/dl (65-105)
[2024-05-25] MEDS: DOCUSATE SODIUM 100 MG CAPSULE PO ×2 (08:19→21:53)
[2024-05-25] MEDS: metFORMIN HCL 500 MG TABLET PO ×2 (08:19→17:37)
[2024-05-25] MEDS: ACETAMINOPHEN 325 MG TABLET 650 MG PO ×2 (08:19→23:56)
[2024-05-25] MEDS: SODIUM CHLORIDE 500 MG TABLET PO ×2 (08:19→17:37)
[2024-05-25] MEDS: guaiFENesin 12 HR 600 MG TABCR 1200 MG PO ×2 (08:19→21:52)
[2024-05-25] MEDS: LACTULOSE 20 GM/30 ML UDC PO ×3 (08:19→21:53)
--- NOTE | 2024-05-25 09:32 | PC.NURSE ---
Confirmed with ASSOCIATE DATA SCIENTIST that void trial is to wait until after patient has a bowel movement.
--- NOTE | 2024-05-25 10:35 | HOMEO2EVAL ---
Evaluation was performed at [facility] Home Oxygen Evaluation RC: Home Oxygen (O2) Evaluation Start: 05/25/24 09:07 Freq: ONCE Status: Active Protocol: RPE Activity Type Activity Date Activity User E-sign Co-sign Detail Recorded Client Recorded Date Recorded By Document 05/25/24 09:40 SJB [id number] 05/25/24 10:34 SJB Document 05/25/24 09:42 SJB [id number] 05/25/24 10:34 SJB Document 05/25/24 09:44 SJB [id number] 05/25/24 10:34 SJB Document 05/25/24 09:46 SJB [id number] 05/25/24 10:34 SJB Document 05/25/24 09:48 SJB [id number] 05/25/24 10:34 SJB Document 05/25/24 09:50 SJB [id number] 05/25/24 10:34 SJB Document 05/25/24 09:54 SJB [id number] 05/25/24 10:34 SJB Document 05/25/24 09:57 SJB [id number] 05/25/24 10:34 SJB 05/25/24 05/25/24 05/25/24 09:40 09:42 09:44 Home O2 Evaluation [Oxygen] -Test Phase Resting Resting Exercise -Oxygen Delivery Room Air Nasal Cannula Nasal Cannula -Oxygen Flow Rate (L/min) 1 1 [Pulse Oximetry] -Pulse Oximetry (90-100 %) 87 L 93 84 L [Pulse Rate] -Pulse Rate (60-100 beats/min) 84 76 89 [Evaluation] -Activity Tolerance Fair -Rate of Perceived Exertion (PE) 12 Query Text:Click the Protocol Button to View the RPE Scale [Exercise] -Ambulation Distance (feet) 25 -Ambulation Distance (meters) 7.61 [Comments] -Home Oxygen Evaluation Comments Will start on 1 Will begin walk After 25 ft, lpm at rest on 1 lpm sp02 down to 84 pushing %, hr 89. wheelchair. Pt Encourage to breaths very stand taller quick and and PLB. Will shallow. DX: stop and pulm increase to 2 restrictive lpm. Sp02 up disease. to 90%, will continue. [Charges] -Evaluation Charges O2 Evaluation Charge 10/28/24 10/28/24 10/28/24 09:46 09:48 09:50 Home O2 Evaluation [Oxygen] -Test Phase Exercise Exercise Exercise -Oxygen Delivery Nasal Cannula Nasal Cannula Nasal Cannula -Oxygen Flow Rate (L/min) 2 3 4 [Pulse Oximetry] -Pulse Oximetry (90-100 %) 84 L 87 L 87 L [Pulse Rate] -Pulse Rate (60-100 beats/min) 81 89 90 [Evaluation] -Activity Tolerance Fair Fair Fair -Rate of Perceived Exertion (PE) 13 Somewhat 13 Somewhat 15 Hard Query Text:Click the Protocol Button Hard Hard to View the RPE Scale [Exercise] -Ambulation Distance (feet) 15 20 30 -Ambulation Distance (meters) 4.57 6.09 9.14 [Comments] -Home Oxygen Evaluation Comments Will increase On 3 lpm, pt Sp02 dropped to to 3 lpm. Sp02 dropped to 87%, 87%, will up to 90% with will increase increase to 5 PLB, will to 4 lpm. On 4 lpm. Sp02 up continue walk. lpm, sp02 now to 89%, walk 89, will continued. continue. [Charges] -Evaluation Charges 05/25/24 05/25/24 09:54 09:57 Home O2 Evaluation [Oxygen] -Test Phase Exercise Exercise -Oxygen Delivery Nasal Cannula Nasal Cannula -Oxygen Flow Rate (L/min) 5 6 [Pulse Oximetry] -Pulse Oximetry (90-100 %) 87 L 89 L [Pulse Rate] -Pulse Rate (60-100 beats/min) 91 [Evaluation] -Activity Tolerance Fair Poor -Rate of Perceived Exertion (PE) 15 Hard 15 Hard Query Text:Click the Protocol Button to View the RPE Scale [Exercise] -Ambulation Distance (feet) 20 50 -Ambulation Distance (meters) 6.09 15.23 [Comments] -Home Oxygen Evaluation Comments Sp02 dropped to Pt finished 87%, inc to 6 with Sp02 at 89 lpm. Sp02 89- %. Due to his 90%, will pulmonary continue walk. restrictive disease, his Sp02s range from 84% to 90% with exercise. Strongly encourage to try to stand up taller and especially to use PLB! Pt walked approx a total of 160 ft, pushing wheelchair, occ moaning due to c/o pain. [Charges] -Evaluation Charges
[2024-05-25] MEDS: INSULIN HUMAN LISPRO (*BKC) 1,000 UNITS/10 ML VIAL SUB-Q (11:39)
[2024-05-25 11:41] LABS: Glucose Point of Care 232 mg/dl (65-105)
[2024-05-25 17:18] LABS: Glucose Point of Care 198 mg/dl (65-105)
[2024-05-25] MEDS: ALPRAZolam (*CRX) 0.5 MG TABLET PO (21:53)
[2024-05-25 22:06] LABS: Glucose Point of Care 207 mg/dl (65-105)
[2024-05-26] VITALS (10 sets, daily range): BP systolic 105–116; BP diastolic 69–74; PULSE 68–89; RESP 16–20; TEMP 36.3–36.7; O2SAT 90–99
[2024-05-26] MEDS: IPRATROPIUM 0.5 MG/ALBUTEROL SULFATE 2.5 MG AMPUL.NEB 3 ML INHALATION ×4 (00:53→16:43)
--- NOTE | 2024-05-26 03:00 | PC.NURSE ---
Patient has been c/o lower abdominal pain. Patient given tylenol (only pain medication available to him). He was able to sleep for a short while, but woke up c/o abdominal pain. Patient has been given 3 doses of lactulose in an effort to help him have a BM. This has been unsuccessful to date. Fourth dose of lactulose was due at 0300, and was not given due to abdominal cramping and pain. Warm blankets placed on abdomen help for a limited amount of time, enabling him to get short amounts of sleep.
[2024-05-26 07:41] LABS: Glucose Point of Care 150 mg/dl (65-105)
[2024-05-26] MEDS: LACTULOSE 20 GM/30 ML UDC PO (09:27)
[2024-05-26] MEDS: SODIUM CHLORIDE 500 MG TABLET PO ×2 (09:27→17:39)
[2024-05-26] MEDS: metFORMIN HCL 500 MG TABLET PO ×2 (09:27→17:39)
[2024-05-26] MEDS: guaiFENesin 12 HR 600 MG TABCR 1200 MG PO ×2 (09:27→20:46)
[2024-05-26] MEDS: DOCUSATE SODIUM 100 MG CAPSULE PO ×2 (09:27→20:46)
--- NOTE | 2024-05-26 09:58 | PM.EVENT ---
Event Note Event Note Event Note: Patient still with no BM continue lactulose until BM then can perform bladder trial.
[2024-05-26 11:57] LABS: Glucose Point of Care 200 mg/dl (65-105)
[2024-05-26 17:04] LABS: Glucose Point of Care 199 mg/dl (65-105)
[2024-05-26] MEDS: ALPRAZolam (*CRX) 0.5 MG TABLET PO (20:46)
[2024-05-26 20:57] LABS: Glucose Point of Care 163 mg/dl (65-105)
[2024-05-27] VITALS (15 sets, daily range): BP systolic 104–113; BP diastolic 71–79; PULSE 72–86; RESP 16–20; TEMP 36.6; O2SAT 91–100
[2024-05-27] MEDS: IPRATROPIUM 0.5 MG/ALBUTEROL SULFATE 2.5 MG AMPUL.NEB 3 ML INHALATION ×5 (00:30→23:36)
[2024-05-27 05:49] LABS: Anion Gap 0 mmol/L (4-12); Blood Urea Nitrogen 13 mg/dL (7-18); Calcium 8.7 mg/dL (8.5-10.1); Carbon Dioxide 38 mmol/L (21-32); Chloride 87 mmol/L (98-108); Estimated CRCL calculation 82 ml/min; Estimated Glomerular Filt Rate > 60; Glucose 137 mg/dL (70-99); Osmolality Calculated 262 mOsm/kg (285-295); Potassium 4.4 mmol/L (3.5-5.1); Sodium 125 mmol/L (136-145)
[2024-05-27] MEDS: ACETAMINOPHEN 325 MG TABLET 650 MG PO ×2 (06:20→20:11)
[2024-05-27 08:29] LABS: Basophils Absolute Auto 0.05 K/mm3 (0.00-0.10); Basophils Percent Auto 0.8 % (0.0-1.0); Eosinophils Absolute Auto 0.39 K/mm3 (0.02-0.50); Eosinophils Percent Auto 6.5 % (1.0-6.0); Hematocrit 32.9 % (37.0-46.0); Hemoglobin 10.7 g/dL (12.4-15.3); Immature Granulocyte Absolute 0.04 K/mm3 (0.00-0.00); Immature Granulocyte Percent A 0.7 % (0.0-0.0); Lymphocytes Absolute Auto 1.07 K/mm3 (1.10-4.50); Mean Corpuscular HGB Conc 32.5 g/dL (32-36); Mean Corpuscular Hemoglobin 28.5 pg (27.0-31.0); Mean Corpuscular Volume 87.7 fL (78.0-102.0); Mean Platelet Volume 9.2 fl (8.7-11.0); Monocytes Percent Auto 10.1 % (2.0-11.0); Neutrophils Absolute Auto 3.81 K/mm3 (1.70-7.20); Neutrophils Percent Auto 63.9 % (50.0-70.0); Platelet Count Result 247 K/mm3 (150-420); Red Blood Count 3.75 M/mm3 (4.70-6.10); Red Cell Distribution Width 14.8 % (11.6-14.4)
[2024-05-27] MEDS: SODIUM CHLORIDE 500 MG TABLET PO ×2 (08:41→17:11)
[2024-05-27] MEDS: metFORMIN HCL 500 MG TABLET PO ×2 (08:41→17:11)
[2024-05-27] MEDS: guaiFENesin 12 HR 600 MG TABCR 1200 MG PO ×2 (08:42→20:11)
[2024-05-27] MEDS: DOCUSATE SODIUM 100 MG CAPSULE PO ×2 (08:42→20:11)
--- NOTE | 2024-05-27 11:32 | PM.EVENT ---
Event Note Event Note Event Note: Patient has not been able to have a bowel movement for the last few days. He has been attempting oral lactulose however was causing severe cramping and therefore KUB was obtained today. He has large amount of stool burden in his colon. Will treat with lactulose enema today. Labs were reviewed sodium remained stable at 125. He has chronic hyponatremia.
[2024-05-27] MEDS: LACTULOSE ENEMA 200 GM/1,000 ML ENEMA RECTAL (11:41)
--- NOTE | 2024-05-27 12:00 | PC.NURSE ---
Lactulose enema attempted on patient. Pt unable to retain fluid. Upon digital exam, pt had impaction. Copious amount of stool digitally removed.
[2024-05-27 12:07] LABS: Glucose Point of Care 165 mg/dl (65-105)
[2024-05-27 16:58] LABS: Glucose Point of Care 176 mg/dl (65-105)
[2024-05-27] MEDS: ALPRAZolam (*CRX) 0.5 MG TABLET PO (20:11)
[2024-05-27 20:16] LABS: Glucose Point of Care 175 mg/dl (65-105)
[2024-05-28] VITALS (10 sets, daily range): BP systolic 93–115; BP diastolic 68–77; PULSE 67–89; RESP 16–20; TEMP 36.6–36.8; O2SAT 90–100
--- NOTE | 2024-05-28 05:54 | PC.NURSE ---
Indwelling urinary catheter removed at this time per order to initiate voiding trial. Procedure tolerated well.
[2024-05-28] MEDS: IPRATROPIUM 0.5 MG/ALBUTEROL SULFATE 2.5 MG AMPUL.NEB 3 ML INHALATION ×3 (06:01→16:56)
[2024-05-28 07:48] LABS: Glucose Point of Care 162 mg/dl (65-105)
[2024-05-28] MEDS: SODIUM CHLORIDE 500 MG TABLET PO ×2 (08:33→16:42)
[2024-05-28] MEDS: guaiFENesin 12 HR 600 MG TABCR 1200 MG PO ×2 (08:34→20:02)
[2024-05-28] MEDS: metFORMIN HCL 500 MG TABLET PO ×2 (08:34→16:42)
[2024-05-28] MEDS: DOCUSATE SODIUM 100 MG CAPSULE PO ×2 (08:35→20:02)
[2024-05-28] MEDS: polyethylene glycoL 3350 17 GM POWD.PACK PO (10:27)
[2024-05-28 11:36] LABS: Glucose Point of Care 173 mg/dl (65-105)
--- NOTE | 2024-05-28 11:39 | PC.NURSE ---
Patient has not yet voided at this time since catheter removal this am. Patient denies urge to go and is up in chair so nurse is unable to palpate bladder. Nurse will return patient to bed after lunch and palpate bladder along with bladder scan.
--- NOTE | 2024-05-28 14:07 | PC.NURSE ---
Bladder scan completed on patient with measurement of 360 ml retained. Patient assisted to bathroom, but denied ever feeling the urge to void. 16 portuguese chaves catheter inserted with initial drainage of 325 ml of clear, dark yellow urine. Patient tolerated fairly as likely enlarged prostate made insertion difficult. Patient resting in bed. Catheter patent and draining with stabilization device in place.
[2024-05-28 16:27] LABS: Glucose Point of Care 174 mg/dl (65-105)
[2024-05-28] MEDS: ACETAMINOPHEN 325 MG TABLET 650 MG PO (20:02)
[2024-05-28] MEDS: ALPRAZolam (*CRX) 0.5 MG TABLET PO (20:02)
[2024-05-28 20:07] LABS: Glucose Point of Care 146 mg/dl (65-105)
[2024-05-29] VITALS (12 sets, daily range): BP systolic 115–121; BP diastolic 72–78; PULSE 73–80; RESP 16–20; TEMP 36.3–36.5; O2SAT 95–99
[2024-05-29] MEDS: IPRATROPIUM 0.5 MG/ALBUTEROL SULFATE 2.5 MG AMPUL.NEB 3 ML INHALATION ×4 (00:14→19:03)
[2024-05-29 07:41] LABS: Glucose Point of Care 141 mg/dl (65-105)
[2024-05-29] MEDS: SODIUM CHLORIDE 500 MG TABLET PO ×2 (08:03→16:57)
[2024-05-29] MEDS: DOCUSATE SODIUM 100 MG CAPSULE PO ×2 (08:03→21:40)
[2024-05-29] MEDS: TAMSULOSIN HCL 0.4 MG CAPSULE PO (08:03)
[2024-05-29] MEDS: metFORMIN HCL 500 MG TABLET PO ×2 (08:03→16:57)
[2024-05-29] MEDS: polyethylene glycoL 3350 17 GM POWD.PACK PO (08:03)
[2024-05-29] MEDS: guaiFENesin 12 HR 600 MG TABCR 1200 MG PO ×2 (08:03→21:39)
--- NOTE | 2024-05-29 10:40 | P.PNCROSS_ITS ---
Event Note Event Note Event Note: Void trial attempted and patient had 360 ml of residual urine presence. Added f marlon. Will re-attempt void trial tomorrow morning. If post void bladder scan is greater than 500 ml we will replace chaves catheter and have him follow up with Urology as an outpatient.
[2024-05-29 11:38] LABS: Glucose Point of Care 164 mg/dl (65-105)
[2024-05-29 17:01] LABS: Glucose Point of Care 173 mg/dl (65-105)
[2024-05-29 21:39] LABS: Glucose Point of Care 428 mg/dl (65-105)
[2024-05-29 21:47] LABS: Glucose Point of Care 256 mg/dl (65-105)
[2024-05-30] VITALS: BP 111/72; PULSE 73; RESP 18; TEMP 36.2; O2SAT 93
[2024-05-30] MEDS: ACETAMINOPHEN 325 MG TABLET 650 MG PO ×2 (05:18→08:47)
[2024-05-30 05:30] VITALS: O2SAT 94
[2024-05-30 05:35] VITALS: PULSE 78; RESP 18; O2SAT 94
[2024-05-30] MEDS: IPRATROPIUM 0.5 MG/ALBUTEROL SULFATE 2.5 MG AMPUL.NEB 3 ML INHALATION ×2 (05:38→18:01)
[2024-05-30 05:50] VITALS: PULSE 80; RESP 18; O2SAT 95
[2024-05-30 08:00] VITALS: BP 112/70; PULSE 80; RESP 17; TEMP 36.6; O2SAT 94
--- NOTE | 2024-05-30 08:00 | PC.NURSE ---
Upon morning assessment, no chaves catheter present. BRAYDEN Martin reported at shift change the chaves had been removed at 0610 for voiding trial.
[2024-05-30 08:05] LABS: Glucose Point of Care 168 mg/dl (65-105)
[2024-05-30] MEDS: guaiFENesin 12 HR 600 MG TABCR 1200 MG PO ×2 (08:47→20:53)
[2024-05-30] MEDS: DOCUSATE SODIUM 100 MG CAPSULE PO ×2 (08:47→20:53)
[2024-05-30] MEDS: polyethylene glycoL 3350 17 GM POWD.PACK PO (08:47)
[2024-05-30] MEDS: metFORMIN HCL 500 MG TABLET PO ×2 (08:48→18:00)
[2024-05-30] MEDS: ALPRAZolam (*CRX) 0.5 MG TABLET PO ×2 (08:48→20:53)
[2024-05-30] MEDS: TAMSULOSIN HCL 0.4 MG CAPSULE PO (08:48)
[2024-05-30] MEDS: SODIUM CHLORIDE 500 MG TABLET PO ×2 (08:48→18:00)
[2024-05-30 12:06] LABS: Glucose Point of Care 162 mg/dl (65-105)
--- NOTE | 2024-05-30 15:10 | PC.NURSE ---
Pt has had no void since catheter removal. Bladder scan volume is 396ml. Notified MARISELA Ceja. Will continue to monitor and repeat bladder scan if no void by 1800.
[2024-05-30 16:00] VITALS: BP 108/73; PULSE 74; RESP 17; TEMP 35.9; O2SAT 92
[2024-05-30 17:03] LABS: Glucose Point of Care 160 mg/dl (65-105)
[2024-05-30 22:34] LABS: Glucose Point of Care 383 mg/dl (65-105)
[2024-05-31] VITALS: BP 104/70; PULSE 78; RESP 18; TEMP 36.2; O2SAT 93
[2024-05-31 05:30] VITALS: O2SAT 95
[2024-05-31 08:00] VITALS: BP 105/71; PULSE 96; RESP 19; TEMP 36.5; O2SAT 96
[2024-05-31 08:14] LABS: Glucose Point of Care 193 mg/dl (65-105)
[2024-05-31] MEDS: SODIUM CHLORIDE 500 MG TABLET PO ×2 (08:47→17:03)
[2024-05-31] MEDS: polyethylene glycoL 3350 17 GM POWD.PACK PO (08:47)
[2024-05-31] MEDS: TAMSULOSIN HCL 0.4 MG CAPSULE PO (08:48)
[2024-05-31] MEDS: DOCUSATE SODIUM 100 MG CAPSULE PO ×2 (08:48→20:59)
[2024-05-31] MEDS: guaiFENesin 12 HR 600 MG TABCR 1200 MG PO ×2 (08:48→20:59)
[2024-05-31] MEDS: metFORMIN HCL 500 MG TABLET PO ×2 (08:48→17:03)
[2024-05-31 12:06] LABS: Glucose Point of Care 156 mg/dl (65-105)
[2024-05-31] MEDS: IPRATROPIUM 0.5 MG/ALBUTEROL SULFATE 2.5 MG AMPUL.NEB 3 ML INHALATION (13:56)
[2024-05-31 16:00] VITALS: BP 104/58; PULSE 82; RESP 18; TEMP 36.6; O2SAT 96
[2024-05-31 16:59] LABS: Glucose Point of Care 221 mg/dl (65-105)
[2024-05-31] MEDS: INSULIN HUMAN LISPRO (*BKC) 1,000 UNITS/10 ML VIAL SUB-Q (17:03)
[2024-05-31 21:08] LABS: Glucose Point of Care 322 mg/dl (65-105)
[2024-06-01] VITALS (12 sets, daily range): BP systolic 95–110; BP diastolic 70–76; PULSE 67–82; RESP 18–20; TEMP 36.6–36.7; O2SAT 93–98
[2024-06-01] MEDS: ACETAMINOPHEN 325 MG TABLET 650 MG PO ×4 (02:16→20:47)
[2024-06-01] MEDS: IPRATROPIUM 0.5 MG/ALBUTEROL SULFATE 2.5 MG AMPUL.NEB 3 ML INHALATION ×4 (05:28→23:57)
[2024-06-01 05:33] LABS: Anion Gap 4 mmol/L (4-12); Blood Urea Nitrogen 11 mg/dL (7-18); Calcium 8.8 mg/dL (8.5-10.1); Carbon Dioxide 33 mmol/L (21-32); Chloride 92 mmol/L (98-108); Estimated CRCL calculation 85 ml/min; Estimated Glomerular Filt Rate > 60; Glucose 108 mg/dL (70-99); Osmolality Calculated 268 mOsm/kg (285-295); Potassium 4.3 mmol/L (3.5-5.1); Sodium 129 mmol/L (136-145)
[2024-06-01 08:08] LABS: Glucose Point of Care 210 mg/dl (65-105)
--- NOTE | 2024-06-01 08:23 | P.PNIM_ITS ---
Progress Note: A&P Assessment and Plan (1) Unsteady gait: Code(s): R26.81 - Unsteadiness on feet Status: Acute Assessment and Plan: * Recent hospitalization for Pneumonia/urinary retention/hyponatremia * Swing bed for rehabilitation * PT/OT * PASSR in process for correction placement (2) Urinary retention: Code(s): R33.9 - Retention of urine, unspecified Status: Acute Assessment and Plan: * Recently treated with Rocephin IM for UTI O/P prior to medical admission * Seen 05/13 for hematuria * UA clean * Bladder scan with greater than 600 mL postvoid during medical admission * Parra catheter placed * Flomax initiated * Previous CT scan shows a large prostate * attempted voiding trial on and patient was unsuccessful. Flomax had never been started so initiated Flomax. We attempted voiding trial on Saturday and patient has been voiding spontaneously since. (3) Hyponatremia: Code(s): E87.1 - Hypo-osmolality and hyponatremia Status: Acute Assessment and Plan: * Likely secondary to SIADH * NA 127 POA * Fluid restriction * Sodium Tablets 500mg BID * Follow-up BMP 05/27 * Patient needs continued re-direction on fluid restriction * Labs for today 114 show a sodium of 129 which is stable (4) Syndrome of inappropriate ADH (SIADH) secretion: Code(s): E22.2 - Syndrome of inappropriate secretion of antidiuretic hormone Status: Acute Assessment and Plan: * SEE ABOVE (5) Chronic interstitial lung disease: Code(s): J84.9 - Interstitial pulmonary disease, unspecified Status: Acute Assessment and Plan: * History of pulmonary fibrosis * Appears to be stable * Patient is to wear 2 L nasal cannula * Follows with research engineer outpatient (6) Diabetes: Code(s): E11.9 - Type 2 diabetes mellitus without complications Status: Acute Assessment and Plan: * Accu-Cheks a.c. HS * sliding scale insulin * Resumed oral diabetic medications * Diabetic diet * Watch for hypoglycemia/hypoglycemic protocol ordered Plan Code status: DNR/DNI per POA PT/OT notes: Swing Bed Disposition: patient was admitted to [facility] for continued rehabilitation with PT OT. Likely going to SNF at discharge. PASSR has been completed. Subjective Date/time seen: 06/01/24 08:23 Interval history: Ayush is doing well. He has no complaints. He is urinating without difficulty. Review of Systems Review of Systems: All systems reviewed & are unremarkable except as noted in HPI and below Exam Narrative: General: appears comfortable, in no acute distress Respiratory: breathing is unlabored with even chest rise/fall, lungs are clear without wheezing, rhonchi, and crackles Cardiovascular: Rate and rhythm regular, normal s1s2, no murmur Abdomen: Soft, round, non-tender, active bowel sounds Extremities: No cyanosis, edema, clubbing. Pulses 2/2 Neuro: A&O x 4 Skin: Warm, dry, intact Objective Data Vital Signs Vital Signs: Vital Signs - 24 hr 05/31/24 16:00 06/01/24 00:00 06/01/24 05:29 Temperature 98 F 97.9 F Pulse Rate 82 70 67 Respiratory Rate 18 18 20 Blood Pressure 104/58 L 95/70 L Pulse Oximetry 96 95 97 Oxygen Delivery Room Air Nasal Cannula Oxygen Flow Rate 3 2 06/01/24 05:49 Temperature Pulse Rate 70 Respiratory Rate 20 Blood Pressure Pulse Oximetry 98 Oxygen Delivery Oxygen Flow Rate 2 Intake/Output Intake/Output: Intake & Output 05/30/24 05/31/24 05/31/24 06/01/24 00:59 00:59 23:59 23:59 Intake Total 200 Output Total 1375 Balance -1175 Meds/Results Medications: Active Medications Generic Name Dose Route Start Last Admin Trade Name Freq PRN Reason Stop Dose Admin Acetaminophen 650 mg 05/24/24 09:38 06/01/24 02:16 Acetaminophen 325 Mg Tablet PO 650 mg Q4H PRN Administration Mild Pain (1-3) or Fever Albuterol/Ipratropium 3 ml 05/24/24 18:30 06/01/24 05:28 Ipratropium 0.5 Mg/Albuterol Sulfate 2.5 Mg Ampul.Neb 3 Ml INHALATION 3 ml Q6HRT DOM Administration Alprazolam 0.5 mg 05/24/24 12:41 05/30/24 20:53 Alprazolam (*Crx) 0.5 Mg Tablet PO 0.5 mg BID PRN Administration Anxiety Docusate Sodium 100 mg 05/25/24 09:00 05/31/24 20:59 Docusate Sodium 100 Mg Capsule PO 100 mg Q12HR DOM Administration Glucagon 1 mg 05/24/24 09:38 Glucagon For Inj 1 Mg Vial IM PRN PRN Hypoglycemia Protocol Glucose 15 gm 05/24/24 09:38 Glucose Oral Gel 15 Gm Of Glucse In 37.5 Gm Tube PO PRN PRN Hypoglycemia Protocol Guaifenesin 1,200 mg 05/24/24 21:00 05/31/24 20:59 Guaifenesin 12 Hr 600 Mg Tabcr PO 1,200 mg Q12HR DOM Administration Insulin Human Lispro 2 - 5 units 05/24/24 12:00 05/31/24 17:03 Insulin Human Lispro (*Bkc) 1,000 Units/10 Ml Vial SUB-Q 2 units TIDWM DOM Administration Protocol Metformin HCl 500 mg 05/24/24 17:00 05/31/24 17:03 Metformin Hcl 500 Mg Tablet PO 500 mg BID DOM Administration Ondansetron HCl 4 mg 05/24/24 09:38 05/24/24 20:15 Ondansetron Hcl Odt 4 Mg Tablet PO 4 mg Q6H PRN Administration Nausea And Vomiting Polyethylene Glycol 17 gm 05/28/24 10:00 05/31/24 08:47 Polyethylene Glycol 3350 17 Gm Powd.Pack PO 17 gm QAM [facility] Administration Sodium Chloride 500 mg 05/25/24 09:00 05/31/24 17:03 Sodium Chloride 500 Mg Tablet PO 500 mg BID DOM Administration Tamsulosin HCl 0.4 mg 05/29/24 09:00 05/31/24 08:48 Tamsulosin Hcl 0.4 Mg Capsule PO 0.4 mg QAM [facility] Administration Radiology Results: ITS Impressions Abdomen X-Ray 05/27/24 08:18 IMPRESSION: 1. Large volume of stool in the colon. 2. Stomach distention. Labs Labs: Laboratory Results - last 24 hr 05/31/24 05/31/24 05/31/24 13:05 17:57 22:02 Sodium Potassium Chloride Carbon Dioxide Anion Gap BUN Creatinine Estim Creat Clear Calc Estimated GFR Glucose POC Capillary Glucose 156 H 221 H 322 H Calculated Osmolality Calcium 06/01/24 06/01/24 05:03 09:02 Sodium 129 L Potassium 4.3 Chloride 92 L Carbon Dioxide 33 H Anion Gap 4 BUN 11 Creatinine 0.63 L Estim Creat Clear Calc 85 Estimated GFR > 60 Glucose 108 H POC Capillary Glucose 210 H Calculated Osmolality 268 L Calcium 8.8
[2024-06-01] MEDS: INSULIN HUMAN LISPRO (*BKC) 1,000 UNITS/10 ML VIAL SUB-Q (08:28)
[2024-06-01] MEDS: polyethylene glycoL 3350 17 GM POWD.PACK PO (08:29)
[2024-06-01] MEDS: DOCUSATE SODIUM 100 MG CAPSULE PO ×2 (08:30→20:47)
[2024-06-01] MEDS: SODIUM CHLORIDE 500 MG TABLET PO ×2 (08:30→16:44)
[2024-06-01] MEDS: guaiFENesin 12 HR 600 MG TABCR 1200 MG PO ×2 (08:31→20:47)
[2024-06-01] MEDS: TAMSULOSIN HCL 0.4 MG CAPSULE PO (08:31)
[2024-06-01] MEDS: metFORMIN HCL 500 MG TABLET PO ×2 (08:31→16:44)
[2024-06-01 11:39] LABS: Glucose Point of Care 153 mg/dl (65-105)
[2024-06-01 16:40] LABS: Glucose Point of Care 167 mg/dl (65-105)
[2024-06-01] MEDS: ALPRAZolam (*CRX) 0.5 MG TABLET PO (20:47)
[2024-06-01 20:51] LABS: Glucose Point of Care 256 mg/dl (65-105)
[2024-06-02] VITALS: BP 94/62; PULSE 71; RESP 18; TEMP 36.4; O2SAT 96
[2024-06-02] MEDS: IPRATROPIUM 0.5 MG/ALBUTEROL SULFATE 2.5 MG AMPUL.NEB 3 ML INHALATION (05:37)
[2024-06-02 05:38] VITALS: PULSE 72; RESP 20; O2SAT 94
[2024-06-02 05:46] VITALS: PULSE 74; RESP 22; O2SAT 96
[2024-06-02 07:51] LABS: Glucose Point of Care 158 mg/dl (65-105)
[2024-06-02 08:00] VITALS: BP 102/64; PULSE 81; RESP 20; TEMP 36.7; O2SAT 92
[2024-06-02] MEDS: polyethylene glycoL 3350 17 GM POWD.PACK PO (08:29)
[2024-06-02] MEDS: guaiFENesin 12 HR 600 MG TABCR 1200 MG PO (08:29)
[2024-06-02] MEDS: DOCUSATE SODIUM 100 MG CAPSULE PO (08:30)
[2024-06-02] MEDS: TAMSULOSIN HCL 0.4 MG CAPSULE PO (08:30)
[2024-06-02] MEDS: metFORMIN HCL 500 MG TABLET PO (08:30)
[2024-06-02] MEDS: SODIUM CHLORIDE 500 MG TABLET PO (08:31)
--- NOTE | 2024-06-02 10:47 | P.DS_ITS ---
DS: Discharge Diagnosis Discharge Diagnosis (1) Unsteady gait: Code(s): R26.81 - Unsteadiness on feet Status: Acute Assessment and Plan: * Recent hospitalization for Pneumonia/urinary retention/hyponatremia * Swing bed for rehabilitation * PT/OT * PASSR in process for long term placement (2) Urinary retention: Code(s): R33.9 - Retention of urine, unspecified Status: Acute Assessment and Plan: * Recently treated with Rocephin IM for UTI O/P prior to medical admission * Seen 05/13 for hematuria * UA clean * Bladder scan with greater than 600 mL postvoid during medical admission * Parra catheter placed * Flomax initiated * Previous CT scan shows a large prostate * attempted voiding trial on and patient was unsuccessful. Flomax had never been started so initiated Flomax. We attempted voiding trial on Saturday and patient has been voiding spontaneously since. (3) Hyponatremia: Code(s): E87.1 - Hypo-osmolality and hyponatremia Status: Acute Assessment and Plan: * Likely secondary to SIADH * NA 127 POA * Fluid restriction * Sodium Tablets 500mg BID * Follow-up BMP 05/27 * Patient needs continued re-direction on fluid restriction * Labs for today 4 show a sodium of 129 which is stable (4) Syndrome of inappropriate ADH (SIADH) secretion: Code(s): E22.2 - Syndrome of inappropriate secretion of antidiuretic hormone Status: Acute Assessment and Plan: * SEE ABOVE (5) Chronic interstitial lung disease: Code(s): J84.9 - Interstitial pulmonary disease, unspecified Status: Acute Assessment and Plan: * History of pulmonary fibrosis * Appears to be stable * Patient is to wear 2 L nasal cannula * Follows with community health consultant outpatient (6) Diabetes: Code(s): E11.9 - Type 2 diabetes mellitus without complications Status: Acute Assessment and Plan: * Accu-Cheks a.c. HS * sliding scale insulin * Resumed oral diabetic medications * Diabetic diet * Watch for hypoglycemia/hypoglycemic protocol ordered Plan Code status: DNR/DNI per POA PT/OT notes: Swing Bed Disposition: patient was admitted to [facility] for continued rehabilitation with PT OT. Likely going to SNF at discharge. PASSR has been completed. DS: Summary Hospital Course Reason for hospitalization: Weakness, Retention Time Spent with Patient Time attestation: Total time spent providing and/or coordinating discharge services: Exam Narrative: General: appears comfortable, in no acute distress Respiratory: breathing is unlabored with even chest rise/fall, lungs are clear without wheezing, rhonchi, and crackles Cardiovascular: Rate and rhythm regular, normal s1s2, no murmur Abdomen: Soft, round, non-tender, active bowel sounds Extremities: No cyanosis, edema, clubbing. Pulses 2/2 Neuro: A&O x 4 Skin: Warm, dry, intact DS: Data Data Completed and Pending Labs on day of discharge: Labs from last 24 hours 06/02/24 06/01/24 06/01/24 07:46 20:46 17:36 POC Capillary Glucose 158 H 256 H 167 H 06/01/24 12:34 POC Capillary Glucose 153 H Discharge Plan Discharge Attending physician on discharge: Christiano Hernandez Consulting providers: Yane Clark Discharging Clinician: Marlee Thompson Anticipated Discharge Date/Time: 06/02/24 10:03 Patient Disposition: [facility] Activity: may shower, unlimited and no driving Diet: heart healthy Wound Care Instructions: follow printed instructions Discharge Instructions: Make sure you continue to use your oxygen follow up with your primary care provider PT/OT/ST evaluate and treat Patient Instructions: Antibiotic Form, Melatonin (By mouth), Cystic Fibrosis (GEN), Urinary Retention in Men (ED), Fall Prevention for Older Adults (DC), Using Oxygen at Home (DC), Weakness (DC), Altered Mental Status (ED), Hypoxia (ED) Stand Alone Forms: General Discharge Information, Prison Discharge Follow-up/Referrals: Bhaskar Ross MD [Primary Care Provider] - Call for Appointment Discharge Medications: New melatonin 5 mg capsule 5 mg PO HS Qty: 30 0RF Continued acetaminophen [Tylenol] 325 mg Tablet 650 mg PO Q4-6H PRN (Reason: Pain, Mild) ipratropium-albuterol 0.5 mg-3 mg(2.5 mg base)/3 mL Solution For Nebulization 3 ml INHALATION Q6H Mucinex 1,200 mg BYMOUTH Q12H alprazolam 0.5 mg Tablet 0.5 mg PO BID PRN (Reason: Anxiety) Qty: 1 0RF metformin 500 mg tablet 500 mg PO BID krill oil 500 mg capsule 500 mg PO DAILY Date of admission: 05/24/24 08:37 Primary Care Provider: Bhaskar Ross Admitting Provider: Christiano Hernandez Attending physician on admission: Brenna Jimenes Condition: Stable
--- NOTE | 2024-06-02 11:15 | PC.NURSE ---
Report called to Cathy at [facility]. Cathy voiced understanding of discharge instructions and report.
[2024-06-02 11:36] LABS: Glucose Point of Care 160 mg/dl (65-105)
--- NOTE | 2024-06-02 13:20 | PC.NURSE ---
Patient discharging to SNF, [facility]. 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 Discharge package sent with staff. Personal items sent with family to be delivered to patient across the street. Incidental supplies sent as well.
[2024-06-02 13:22] VITALS: O2SAT 95
--- NOTE | 2024-06-04 09:46 | PC.NURSE ---
Discharge to [facility], no questions regarding dc packet
== END 2024-06-02 13:20 | DRG 92 ==
PROVIDERS: Nurse Practitioner Family; Admitting Provider Internal Medicine; PCP Internal Medicine; Visit Provider Nurse Practitioner Acute Care
DX: R26.81 Unsteadiness on feet (principal); E22.2 Syndrome of inappropriate secretion of antidiuretic hormone; F84.0 Autistic disorder; J84.10 Pulmonary fibrosis, unspecified; N40.1 Benign prostatic hyperplasia with lower urinary tract symptoms; R33.8 Other retention of urine
CPT/HCPCS: 36415; 74018; 80048; 82948; 85025; 92526; 92610; 94618; 94640; 97110; 97161; 97165; 97530; 97535; A9270; J1815

== ENCOUNTER 2024-06-15 15:41 | Emergency (ER) | payer MEDICARE, SELFPAY ==
[2024-06-15 15:57] VITALS: BP 125/88; PULSE 88; RESP 20; TEMP 36.6; O2SAT 93
--- NOTE | 2024-06-15 16:04 | PC.NURSE ---
pt refused lab work and imaging states he wants to go back to [facility]
--- NOTE | 2024-06-15 16:10 | ED_ITS ---
HPI - General Adult General Chief complaint: Weakness Stated complaint: weakness Time Seen by Provider: 06/15/24 15:45 Source: patient, EMS and old records reviewed Mode of arrival: EMS History of Present Illness HPI narrative: 84 YEARS OLD WHITE MALE CAME TO THE EMERGENCY ROOM BY AMBULANCE [facility] BECAUSE OF SHORTNESS OF BREATH AND HYPOXIA. HISTORY OF CHRONIC INTERSTITIAL PULMONARY DISEASE, PATIENT NORMALLY ON 6 L OF OXYGEN, HE LEFT THE JAIL TO GO TO THE [facility] WITH 1 OF HIS FRIEND WITHOUT OXYGEN, 1 HOUR LATER STARTED FEELING TIRED, WEAK, CONFUSED WITH SHORTNESS OF BREATH. EMT ARRIVED, OXYGEN SATURATION 85 ON ROOM AIR, STARTED HIM ON 6 L OF OXYGEN IMMEDIATELY WITH REMARKABLE IMPROVEMENT. ON ARRIVAL TO THE EMERGENCY ROOM PATIENT DENIES ANY SYMPTOMS, FEELING EXACTLY THE SAME BEFORE LEAVING THE JAIL AND DECLINED ANY BLOOD WORKUP OR IMAGING AT THIS TIME AND WOULD LIKE TO GO BACK TO [facility]AIL. Related Data Home Medications Medication Instructions Recorded Confirmed krill oil 500 mg capsule 500 mg PO DAILY 01/08/23 05/24/24 metformin 500 mg tablet 500 mg PO BID 07/31/23 05/24/24 Mucinex 1,200 mg BYMOUTH Q12H 05/24/24 05/24/24 acetaminophen 325 mg tablet 650 mg PO Q4-6H PRN Pain, Mild 05/24/24 05/24/24 (Tylenol) ipratropium 0.5 mg-albuterol 3 mg 3 ml inhalation Q6H 05/24/24 05/24/24 (2.5 mg base)/3 mL nebulization soln Allergies Allergy/AdvReac Type Severity Reaction Status Date / Time No Known Allergies Allergy Verified 01/22/24 09:59 Review of Systems Review of Systems: All systems reviewed & are unremarkable except as noted in HPI and below PMFSH Surgical History Surgical History H/O foot surgery Family History Family History Sibling Family history of blood dyscrasia Family history of diabetes mellitus in first degree relative Family history of atrial fibrillation Father Family history of heart disease in male family member before age 55 Grandparent Diabetes mellitus Social History Social History Smoking status: Never smoker Alcohol intake: never Substance use: never Substance use type: does not use Do You Feel Safe in your Home?: Yes Lack of Transportation: No Lack of Food: Never True Current Housing: I Have Housing Concerned About Future Housing: No Difficulty Paying Gas/Electric Bills: No Difficulty Paying for Meds: No Currently Unemployed: No Education: Grade School Difficulty w/ Childcare or Family Care: No Spiritual care concerns: No Exam Narrative: GENERAL APPEARANCE: WELL-DEVELOPED, WELL-NOURISHED SKIN: NORMAL COLOR HEAD: NORMOCEPHALIC, NONTRAUMATIC EYES: CLEAR CONJUNCTIVA ENT: OROPHARYNX NORMAL, EARS NORMAL, NOSE NORMAL NECK: SUPPLE, NONTENDER CHEST AND RESPIRATORY: AIRWAY PATENT, NO RESPIRATORY DISTRESS, NO ACCESSORY MUSCLE USE, BASAL DRY RALES BILATERALLY HEART: REGULAR RATE/RHYTHM ABDOMEN: SOFT, NONTENDER, NO ORGANOMEGALY, QUIET BOWEL SOUNDS VASCULAR: NORMAL PERIPHERAL PULSES, NORMAL CAPILLARY REFILL. 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, NO GROSS MOTOR DEFICIT Course Vital Signs Vital signs: Vital Signs Temperature 36.6 C 06/15/24 15:57 Pulse Rate 88 06/15/24 15:57 Respiratory Rate 20 06/15/24 15:57 Blood Pressure 125/88 06/15/24 15:57 Pulse Oximetry 93 06/15/24 15:57 Oxygen Delivery Room Air 06/15/24 15:57 Temperature 36.6 C 06/15/24 15:57 Pulse Rate 88 06/15/24 15:57 Respiratory Rate 20 06/15/24 15:57 Blood Pressure 125/88 06/15/24 15:57 Pulse Oximetry 93 06/15/24 15:57 Oxygen Delivery Room Air 06/15/24 15:57 Medical Decision Making [facility] Narrative Medical decision making narrative: PATIENT LEFT JAIL WITHOUT HIS OXYGEN ON WHICH IS 6 LITER, NASAL CANNULA, 1 HOUR LATER PATIENT DEVELOPED HYPOXIA WITH FEELING WEIRD, PATIENT CAME TO THE ED BY AMBULANCE, ON 6 L OXYGEN, ASYMPTOMATIC DECLINED ANY BLOOD WORKUP OR IMAGING AND WOULD LIKE TO GO BACK TO [facility]AIL. CURRENTLY PATIENT IS ASYMPTOMATIC, HE IS AWAKE, ALERT AND ORIENTED X4, HIS PER DAY WAS YESTERDAY. Differential Diagnosis Differential Diagnosis: NONCOMPLIANCE WITH OXYGEN SUPPLEMENT Vital Signs Vital Signs: Vital Signs Temperature 36.6 C 06/15/24 15:57 Pulse Rate 88 06/15/24 15:57 Respiratory Rate 20 06/15/24 15:57 Blood Pressure 125/88 06/15/24 15:57 Pulse Oximetry 93 06/15/24 15:57 Oxygen Delivery Room Air 06/15/24 15:57 Temperature 36.6 C 06/15/24 15:57 Pulse Rate 88 06/15/24 15:57 Respiratory Rate 20 06/15/24 15:57 Blood Pressure 125/88 06/15/24 15:57 Pulse Oximetry 93 06/15/24 15:57 Oxygen Delivery Room Air 06/15/24 15:57 Critical Care Time Critical Care Time Critical Care Time: No Discharge Plan Discharge Clinical Impression: Interstitial lung disease, Hypoxia, Non-compliance Patient Disposition: [facility] Condition: Improved Instructions: Hypoxia (ED) Additional Instructions: DISCHARGE INSTRUCTIONS RETURN IF SYMPTOMS ARE WORSENING , CALL YOUR FAMILY PHYSICIAN FOR APPOINTMENT, TAKE TYLENOL NEEDED FOR ACHES AND PAIN, BRYON NUE HOME MEDICATIONS. DO NOT TAKE YOUR OXYGEN OFF ANY TIME, INDOORS OR OUTDOORS. Prescriptions: No Action acetaminophen [Tylenol] 325 mg Tablet 650 mg PO Q4-6H PRN (Reason: Pain, Mild) ipratropium-albuterol 0.5 mg-3 mg(2.5 mg base)/3 mL Solution For Nebulization 3 ml INHALATION Q6H Mucinex 1,200 mg BYMOUTH Q12H melatonin 5 mg capsule 5 mg PO HS Qty: 30 0RF alprazolam 0.5 mg Tablet 0.5 mg PO BID PRN (Reason: Anxiety) Qty: 1 0RF metformin 500 mg tablet 500 mg PO BID krill oil 500 mg capsule 500 mg PO DAILY Follow-up/Referrals: UNKNOWN,DOCTOR [Primary Care Provider] -
== END 2024-06-15 16:20 ==
PROVIDERS: Emergency Provider Emergency Medicine
DX: J84.9 Interstitial pulmonary disease, unspecified (principal); R09.02 Hypoxemia; Z91.199 Patient's noncompliance with other medical treatment and regimen due to unspecified reason; Z99.81 Dependence on supplemental oxygen
CPT/HCPCS: 99283